=== PATIENT | male | born 1980 | race Caucasian/White ===

== ENCOUNTER 2020-07-08 08:00 | Outpatient (CLI) | payer SELFPAY ==
[2020-07-08 14:54] LABS: ALBUMIN 2.7 g/dL (3.2-5.5); ALBUMIN/GLOBULIN RATIO 0.7 (1.0-2.2); CALCIUM 8.3 mg/dL (8.5-10.3); CREATININE 0.9 mg/dL (0.6-1.2); TOTAL PROTEIN 6.7 g/dL (6.7-8.2)
[2020-07-08 15:02] LABS: BASOPHILS % (AUTO) 0.8 %; EOSINOPHILS # (AUTO) 0.1 10^3/uL (0.0-0.7); HGB - HEMOGLOBIN 12.4 g/dL (14.0-18.0); LYMPHOCYTES # (AUTO) 1.3 10^3/uL (1.5-3.5); LYMPHOCYTES % (AUTO) 35.8 %; MEAN CORPUSCULAR HEMOGLOBIN 33.7 pg (27.0-31.0); MEAN CORPUSCULAR HGB CONC 32.7 g/dL (32.0-36.0); MEAN PLATELET VOLUME 10.2 fL (7.4-11.4); MONOCYTES # (AUTO) 0.4 10^3/uL (0.0-1.0); MONOCYTES % (AUTO) 10.8 %; NEUTROPHILS # (AUTO) 1.8 10^3/uL (1.5-6.6); NEUTROPHILS % (AUTO) 49.3 %; PLT - PLATELET COUNT 93 10^3/uL (130-450); RED BLOOD COUNT 3.68 10^6/uL (4.70-6.10); RED CELL DISTRIBUTION WIDTH 17.4 % (12.0-15.0); WHITE BLOOD COUNT 3.7 x10^3/uL (4.8-10.8)
== END 2020-07-08 23:59 ==
LOC: LAB.S 08:00
PROVIDERS: ATTEND Physician Assistant Medical
DX: R10.31 Right lower quadrant pain (principal)
CPT/HCPCS: 36415; 80053; 85025; 87086

== ENCOUNTER 2020-07-08 18:34 | Emergency (ER) | payer SELFPAY ==
[2020-07-08 19:26] LABS: EOSINOPHILS # (AUTO) 0.1 10^3/uL (0.0-0.7); EOSINOPHILS % (AUTO) 2.5 %; HGB - HEMOGLOBIN 12.2 g/dL (14.0-18.0); LYMPHOCYTES # (AUTO) 1.2 10^3/uL (1.5-3.5); LYMPHOCYTES % (AUTO) 29.2 %; MEAN CORPUSCULAR HEMOGLOBIN 34.7 pg (27.0-31.0); MEAN CORPUSCULAR HGB CONC 34.1 g/dL (32.0-36.0); MEAN CORPUSCULAR VOLUME 101.7 fL (80.0-94.0); MEAN PLATELET VOLUME 9.4 fL (7.4-11.4); MONOCYTES # (AUTO) 0.5 10^3/uL (0.0-1.0); MONOCYTES % (AUTO) 11.3 %; NEUTROPHILS # (AUTO) 2.3 10^3/uL (1.5-6.6); NEUTROPHILS % (AUTO) 55.8 %; PLT - PLATELET COUNT 88 10^3/uL (130-450); RED BLOOD COUNT 3.52 10^6/uL (4.70-6.10); RED CELL DISTRIBUTION WIDTH 17.2 % (12.0-15.0); WHITE BLOOD COUNT 4.1 x10^3/uL (4.8-10.8)
--- NOTE | 2020-07-08 19:27 | ED Physician Documentation ---
History of Present Illness - Stated complaint Stated Complaint: LOWER ABD PX - Chief complaint Chief Complaint: General - History obtained from History obtained from: Patient - History of Present Illness Pain level max: 10 Pain level now: 0 Improved by: nothing Worsened by: Eating or drinking - Additonal information Additional information: Patient is a 40-year-old male who presents to the emergency department the right lower quadrant abdominal pain. He states is been ongoing for the past several months. Worse with eating and drinking. Better with rest. Has had chronic diarrhea as well. He was seen at the walk-in clinic earlier today and diagnosed with a possible UTI and kidney stones. He states that his prescriptions never arrived at [facility] and so came here for evaluation. No history of inflammatory bowel disease in the patient's family that he is aware of. No history of IBS. Patient has never had a colonoscopy and never seen in. There is a history of alcoholism in the family. He states that he has had heavy alcohol use in the past, but no longer drinks or smokes. Review of Systems Ten Systems: 10 systems reviewed and negative Constitutional: denies: Fever, Chills Throat: denies: Sore throat Cardiac: denies: Chest pain / pressure Respiratory: denies: Cough GI: reports: Diarrhea, Bloody / black stool (Patient states that he had bright red blood per rectum recently, states he was diagnosed with a hemorrhoid versus anal fissure.). denies: Vomiting, Hematemesis Skin: denies: Rash Musculoskeletal: denies: Neck pain, Back pain Neurologic: denies: Headache PD PAST MEDICAL HISTORY - Past Medical History Past Medical History: No - Past Surgical History Past Surgical History: No - Present Medications Home Medications: Ambulatory Orders Medication Instructions Recorded Confirmed Citalopram [CeleXA] 20 mg PO DAILY 07/08/20 07/08/20 Oxycodone HCl [Roxicodone] 5 mg PO BID PRN #14 tablet 07/08/20 - Allergies Allergies/Adverse Reactions: Allergies Allergy/AdvReac Type Severity Reaction Status Date / Time No Known Drug Allergies Allergy Verified 07/08/20 18:54 - Living Situation Living Situation: reports: With family Living Arrangement: reports: At home - Social History Does the pt smoke?: No Smoking Status: Former smoker Does the pt drink ETOH?: No Does the pt have substance abuse?: No - Family History Family history: reports: Non contributory PD ED PE NORMAL - Vitals Vital signs reviewed: Yes - General General: Alert and oriented X 3, No acute distress, Well developed/nourished - HEENT HEENT: PERRL, Moist mucous membranes - Neck Neck: Supple, no meningeal sign - Cardiac Cardiac: RRR, Strong equal pulses - Respiratory Respiratory: No respiratory distress, Clear bilaterally - Abdomen Abdomen: Soft, Other (Mildly distended. Nontender) - Back Back: No CVA TTP, No spinal TTP - Derm Derm: Warm and dry - Extremities Extremities: No edema - Neuro Neuro: Alert and oriented X 3 - Psych Psych: Normal mood, Normal affect Results - Vitals Vitals: Vital Signs - 24 hr 07/08/20 07/08/20 18:45 22:16 Temperature 36.7 C 36.7 C Heart Rate 105 H 90 Respiratory 18 16 Rate Blood Pressure 128/85 H 120/80 O2 Saturation 98 100 Oxygen O2 Source Room air - Labs Labs: Laboratory Tests 07/08/20 07/08/20 07/08/20 19:20 19:20 19:20 WBC 4.1 L RBC 3.52 L Hgb 12.2 L Hct 35.8 L MCV 101.7 H MCH 34.7 H MCHC 34.1 RDW 17.2 H Plt Count 88 L MPV 9.4 Neut # (Auto) 2.3 Lymph # (Auto) 1.2 L [place] # (Auto) 0.5 Eos # (Auto) 0.1 Baso # (Auto) 0.0 Absolute Nucleated RBC 0.00 Nucleated RBC % 0.0 PT 15.8 H INR 1.5 H APTT 36.0 H Sodium 135 Potassium 3.5 Chloride 99 L Carbon Dioxide 28 Anion Gap 8.0 BUN 13 Creatinine 0.9 Estimated GFR (MDRD) 94 Glucose 132 H Calcium 8.3 L Total Bilirubin 3.8 H AST 82 H ALT 40 Alkaline Phosphatase 135 H Total Protein 7.2 Albumin 2.9 L Globulin 4.3 H Albumin/Globulin Ratio 0.7 L Lipase 67 H Urine Color Urine Clarity Urine pH Ur Specific [place] Urine Protein Urine Glucose (UA) Urine Ketones Urine Occult Blood Urine Nitrite Urine Bilirubin Urine Urobilinogen Ur Leukocyte Esterase Urine RBC Urine WBC Ur Squamous Epith Cells Urine Bacteria Urine Mucus Ur Microscopic Review Urine Culture Comments 07/08/20 19:27 WBC RBC Hgb Hct MCV MCH MCHC RDW Plt Count MPV Neut # (Auto) Lymph # (Auto) [place] # (Auto) Eos # (Auto) Baso # (Auto) Absolute Nucleated RBC Nucleated RBC % PT INR APTT Sodium Potassium Chloride Carbon Dioxide Anion Gap BUN Creatinine Estimated GFR (MDRD) Glucose Calcium Total Bilirubin AST ALT Alkaline Phosphatase Total Protein Albumin Globulin Albumin/Globulin Ratio Lipase Urine Color DARK YELLOW Urine Clarity CLOUDY Urine pH 7.0 Ur Specific [place] 1.020 Urine Protein TRACE Urine Glucose (UA) NEGATIVE Urine Ketones NEGATIVE Urine Occult Blood LARGE H Urine Nitrite NEGATIVE Urine Bilirubin NEGATIVE Urine Urobilinogen 2 H Ur Leukocyte Esterase TRACE H Urine RBC TNTC H Urine WBC 0-3 Ur Squamous Epith Cells NONE SEEN Urine Bacteria Rare Urine Mucus Few Strands Ur Microscopic Review INDICATED Urine Culture Comments INDICATED - Rads (name of study) CT abdomen and pelvis Radiology: Prelim report reviewed, EMP read contemporaneously, See rad report PD MEDICAL DECISION MAKING - ED course Complexity details: reviewed results, re-evaluated patient, considered differential, d/w patient, d/w analytics consultant ED course: 40-year-old male with what appears to be likely alcoholic cirrhosis of the liver with ascites. 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 These are likely chronic. Does have some edematous thickening of the small bowel. Like that this is causing his abdominal pain when he eats. Recommend small frequent meals. I discussed the case with GI, Dr. Smith [facility], they will see the patient in clinic for colonoscopy and endoscopy. He recommends speaking to hematology regarding anticoagulation. Discussed the case with Dr. Gale hematology who feels that it would likely be very dangerous to anticoagulate the patient at this point, not knowing if he has a varices or not. He stated that as this appears likely chronic, the anticoagulation may not change his symptoms much anyway, therefore he would wait until colonoscopy and endoscopy can be completed. He will follow the patient up in clinic as well. The patient was referred to a new PCP today at the walk-in clinic. Hopefully this appointment can be moved up before 02 August. Patient was counseled at length regarding these diagnoses and decision of anticoagula tion or not. Patient is comfortable not having anticoagulation at this time. Patient counseled regarding signs and symptoms for which I believe and urgent re-evaluation would be necessary. Patient with good understanding of and agreement to plan and is comfortable going home at this time This document was made in part using voice recognition software. While efforts are made to proofread this document, sound alike and grammatical errors may occur. Findings of superior mesenteric vein and perhaps portal vein occlusion, likely chronic as there is a tortuous and dilated segment of the superior mesenteric vein inferiorly with suspected collateralization. Edematous thickening of the small bowel is presumably related, as is moderate volume ascites. Departure - Departure Disposition: 01 Home, Self Care Clinical Impression: Alcoholic cirrhosis of liver with ascites, Portal vein thrombosis, Superior mesenteric vein thrombosis Condition: Good Instructions: ED Cirrhosis Liver Follow-Up: MARLENA VENTURA PA-C [Primary Care Provider] - Gutierrez Dougherty MD [Provider Admit Priv/Credential] - Carlotta Sandhu MD [Provider Admit Priv/Credential] - Prescriptions: Oxycodone HCl [Roxicodone] 5 mg PO BID PRN #14 tablet PRN Reason: Abdominal Pain Comments: Return if you worsen. you need to follow up with hepatology (liver doctors), hematology (blood doctors) and your primary care doctor. No alcohol. Avoid tylenol, motrin, aspirin, naproxen and other over the counter pain medications. You have a blood clot in your portal vein and superior mesenteric vein. You need to eat small frequent meals to help avoid abdominal pain. If you develop vomiting with blood, you need to be seen right away. You also need to be seen right away for any dark or tarry stools or a large amount of bright red blood from your rectum. We did discuss anticoagulation tonight, but hematology feels that it is likely best to wait until you can have your endoscopy and colonoscopy to exclude varices. Anticoagulation could cause life-threatening bleeding in you. Do not drink alcohol or drive while on narcotic pain medicine. Note that many narcotic pain relievers also contain tylenol/acetaminophen. Please ensure that your total dose of acetaminophen from all sources does not exceed 3 grams (3000mg) per day. You may constipated on this medication, take a stool softener such as "Colace" twice a day while you are on it. Also recommend a [id number] laxative such as senna or MiraLAX any day that you do not have a bowel movement. If you received narcotic pain medication in the emergency department, do not drive or operate machinery for the next 24 hours. PROCEDURE: Abdomen/Pelvis W INDICATIONS: RLQ abd pain CONTRAST: IV CONTRAST: Optiray 320 ml: 100 PO CONTRAST: *NO PO CONTRAST TECHNIQUE: After the administration of intravenous contrast, 5 mm thick sections acquired from the diaphragms to the symphysis. 5 mm thick coronal and sagittal reformats were acquired. For radiation dose reduction, the following was used: automated exposure control, adjustment of mA and/or kV according to patient size. COMPARISON: None. FINDINGS: Image quality: Excellent. ABDOMEN: Lung bases: Lung bases are clear. Heart size is normal. Solid organs: No focal liver mass. Spleen is unremarkable. Both kidneys enhance normally and symmetrically. No adrenal gland mass. Pancreas within normal limits. Gallbladder not well evaluated. Peritoneum and bowel: Fairly diffuse dilatation and wall thickening of the small bowel with areas of mucosal hyperenhancement, nonspecific. There is moderate volume ascites throughout the abdomen and pelvis. No free air. The appendix is normal in caliber without evidence of appendicitis. Nodes and vessels: Nonopacification of the intrahepatic portal veins. Tortuous and dilated superior mesenteric vein with an abrupt cut off (series 3 images 51-60). Splenic vein is patent. The IVC and aorta are within normal limits. Miscellaneous: No ventral hernias. PELVIS: Genitourinary: Bladder wall thickness is normal. Miscellaneous: No inguinal hernias or adenopathy. Bones: No suspicious bony lesions. No vertebral body compression fractures. IMPRESSION: Findings of superior mesenteric vein and perhaps portal vein occlusion, likely chronic as there is a tortuous and dilated segment of the superior mesenteric vein inferiorly with suspected collateralization. Edematous thickening of the small bowel is presumably related, as is moderate volume ascites. Your platelets are 88 tonight. Your INR is 1.5. Discharge Date/Time: 07/08/20 22:16
[2020-07-08 19:37] LABS: BILIRUBIN,URINE NEGATIVE (NEGATIVE); GLUCOSE, URINE (UA) NEGATIVE (NEGATIVE); KETONES,URINE (UA) NEGATIVE (NEGATIVE); LEUKOCYTE ESTERASE, URINE TRACE (NEGATIVE); NITRITE,URINE NEGATIVE (NEGATIVE); OCCULT BLOOD,URINE LARGE (NEGATIVE); PROTEIN,URINE TRACE mg/dL (NEGATIVE); UROBILINOGEN,URINE 2 E.U./dL (NORMAL)
[2020-07-08 19:40] LABS: ALBUMIN 2.9 g/dL (3.2-5.5); ALBUMIN/GLOBULIN RATIO 0.7 (1.0-2.2); BILIRUBIN,TOTAL 3.8 mg/dL (0.2-1.0); CALCIUM 8.3 mg/dL (8.5-10.3); CREATININE 0.9 mg/dL (0.6-1.2); TOTAL PROTEIN 7.2 g/dL (6.7-8.2)
[2020-07-08 19:40] LABS: CLARITY,URINE CLOUDY (CLEAR)
[2020-07-08] MEDS ORDERED: IOVERSOL 320 100 ML VIAL IVP ONE ×2 (19:55→20:05)
[2020-07-08 19:58] LABS: BACTERIA,URINE Rare /HPF (None Seen); MUCUS,URINE Few Strands; RBC,URINE TNTC /HPF (0-5); SQUAMOUS EPITHELIAL CELL,UR NONE SEEN (<= Few)
[2020-07-08] MEDS ORDERED: DICYCLOMINE 10 MG CAPSULE PO STA (20:06)
[2020-07-08 20:28] LABS: INR 1.5 (0.8-1.2); PT - PROTHROMBIN TIME 15.8 secs (9.9-12.6)
--- NOTE | 2020-07-08 20:41 | CT Report ---
PROCEDURE: Abdomen/Pelvis W INDICATIONS: RLQ abd pain CONTRAST: IV CONTRAST: Optiray 320 ml: 100 PO CONTRAST: *NO PO CONTRAST TECHNIQUE: After the administration of intravenous contrast, 5 mm thick sections acquired from the diaphragms to the symphysis. 5 mm thick coronal and sagittal reformats were acquired. For radiation dose reducti on, the following was used: automated exposure control, adjustment of mA and/or kV according to mariaelena ent size. COMPARISON: None. FINDINGS: Image quality: Excellent. ABDOMEN: Lung bases: Lung bases are clear. Heart size is normal. Solid organs: No focal liver mass. Spleen is unremarkable. Both kidneys enhance normally and symmetri alba. No adrenal gland mass. Pancreas within normal limits. Gallbladder not well evaluated. Peritoneum and bowel: Fairly diffuse dilatation and wall thickening of the small bowel with areas of mucosal hyperenhancement, nonspecific. There is moderate volume ascites throughout the abdomen and pe lvis. No free air. The appendix is normal in caliber without evidence of appendicitis. Nodes and vessels: Nonopacification of the intrahepatic portal veins. Tortuous and dilated superior mesenteric vein with an abrupt cut off (series 3 images 51-60). Splenic vein is patent. The IVC and a hari are within normal limits. Miscellaneous: No ventral hernias. PELVIS: Genitourinary: Bladder wall thickness is normal. Miscellaneous: No inguinal hernias or adenopathy. Bones: No suspicious bony lesions. No vertebral body compression fractures. IMPRESSION: Findings of superior mesenteric vein and perhaps portal vein occlusion, likely chronic as there is a tortuous and dilated segment of the superior mesenteric vein inferiorly with suspected collateralizat ion. Edematous thickening of the small bowel is presumably related, as is moderate volume ascites. Reviewed by: Efrem Flores MD on 07/08/2020 8:40 PM PST Approved by: Efrem Flores MD on 07/08/2020 8:40 PM PST Station ID: [id number]
[2020-07-08 22:18] VITALS: BP 120/80
== END 2020-07-08 22:16 | disposition home or self-care (01) ==
LOC: ED 18:34
DX: K55.059 Acute (reversible) ischemia of intestine, part and extent unspecified (principal); K70.31 Alcoholic cirrhosis of liver with ascites; I81 Portal vein thrombosis; Z87.891 Personal history of nicotine dependence
CPT/HCPCS: 74177; 80053; 81001; 83690; 85025; 85610; 85730; 87086; 99284; A9270; Q9967; 36415; 81003

== ENCOUNTER 2020-07-11 09:23 | Outpatient (CLI) | payer SELFPAY ==
[2020-07-12 06:43] LABS: CA 19-9 39 U/mL (<34)
[2020-07-13 12:06] LABS: ANA SCREEN NEGATIVE (NEGATIVE)
[2020-07-13 13:44] LABS: HEPATITIS B SURFACE ANTIGEN NON-REACTIVE (NON-REACTIVE); HEPATITIS C ANTIBODY NON-REACTIVE (NON-REACTIVE)
[2020-07-14 19:22] LABS: SMOOTH MUSCLE IGG AB <20 U
== END 2020-07-11 09:24 | disposition home or self-care (01) ==
LOC: LAB 09:23
PROVIDERS: ATTEND Internal Medicine Gastroenterology
DX: R19.7 Diarrhea, unspecified (principal); K62.5 Hemorrhage of anus and rectum; K70.31 Alcoholic cirrhosis of liver with ascites; K70.30 Alcoholic cirrhosis of liver without ascites
CPT/HCPCS: 36415; 81599; 82103; 82105; 82378; 82390; 82728; 83516; 86038; 86301; 86803; 87340

== ENCOUNTER 2020-08-13 12:13 | Outpatient (CLI) | payer OTHER ==
[2020-08-13 12:39] LABS: EOSINOPHILS # (AUTO) 0.1 10^3/uL (0.0-0.7); EOSINOPHILS % (AUTO) 3.4 %; HGB - HEMOGLOBIN 11.9 g/dL (14.0-18.0); MEAN CORPUSCULAR HEMOGLOBIN 33.8 pg (27.0-31.0); MEAN CORPUSCULAR HGB CONC 33.1 g/dL (32.0-36.0); MEAN PLATELET VOLUME 10.3 fL (7.4-11.4); MONOCYTES # (AUTO) 0.6 10^3/uL (0.0-1.0); MONOCYTES % (AUTO) 13.5 %; NEUTROPHILS # (AUTO) 2.3 10^3/uL (1.5-6.6); NEUTROPHILS % (AUTO) 56.9 %; PLT - PLATELET COUNT 65 10^3/uL (130-450); RED BLOOD COUNT 3.52 10^6/uL (4.70-6.10); RED CELL DISTRIBUTION WIDTH 17.1 % (12.0-15.0); WHITE BLOOD COUNT 4.1 x10^3/uL (4.8-10.8)
[2020-08-13 12:51] LABS: INR 1.3 (0.8-1.2); PT - PROTHROMBIN TIME 14.6 secs (9.9-12.6)
[2020-08-13 13:19] LABS: ALBUMIN/GLOBULIN RATIO 0.8 (1.0-2.2); BILIRUBIN,TOTAL 1.9 mg/dL (0.2-1.0); CALCIUM 8.9 mg/dL (8.5-10.3); CREATININE 0.7 mg/dL (0.6-1.2); TOTAL PROTEIN 6.9 g/dL (6.7-8.2)
== END 2020-08-13 12:14 | disposition home or self-care (01) ==
LOC: LAB 12:13
PROVIDERS: ATTEND Internal Medicine Gastroenterology
DX: K62.5 Hemorrhage of anus and rectum (principal); K70.30 Alcoholic cirrhosis of liver without ascites; R05 Cough; R11.2 Nausea with vomiting, unspecified; Z20.822 Contact with and (suspected) exposure to COVID-19
CPT/HCPCS: 36415; 80053; 85025; 85610

== ENCOUNTER 2020-09-23 13:06 | Outpatient (CLI) | payer OTHER ==
[2020-09-23 13:29] LABS: BASOPHILS # (AUTO) 0.1 10^3/uL (0.0-0.1); BASOPHILS % (AUTO) 1.1 %; EOSINOPHILS # (AUTO) 0.1 10^3/uL (0.0-0.7); EOSINOPHILS % (AUTO) 2.8 %; HCT - HEMATOCRIT 34.4 % (42.0-52.0); HGB - HEMOGLOBIN 11.5 g/dL (14.0-18.0); LYMPHOCYTES # (AUTO) 1.2 10^3/uL (1.5-3.5); LYMPHOCYTES % (AUTO) 26.3 %; MEAN CORPUSCULAR HEMOGLOBIN 33.9 pg (27.0-31.0); MEAN CORPUSCULAR HGB CONC 33.4 g/dL (32.0-36.0); MEAN CORPUSCULAR VOLUME 101.5 fL (80.0-94.0); MEAN PLATELET VOLUME 9.7 fL (7.4-11.4); MONOCYTES # (AUTO) 0.5 10^3/uL (0.0-1.0); MONOCYTES % (AUTO) 9.6 %; NEUTROPHILS # (AUTO) 2.8 10^3/uL (1.5-6.6); NEUTROPHILS % (AUTO) 59.8 %; PLT - PLATELET COUNT 74 10^3/uL (130-450); RED BLOOD COUNT 3.39 10^6/uL (4.70-6.10); RED CELL DISTRIBUTION WIDTH 15.6 % (12.0-15.0); WHITE BLOOD COUNT 4.7 x10^3/uL (4.8-10.8)
[2020-09-23 13:41] LABS: ALBUMIN 2.7 g/dL (3.2-5.5); ALBUMIN/GLOBULIN RATIO 0.7 (1.0-2.2); BILIRUBIN,TOTAL 2.2 mg/dL (0.2-1.0); CALCIUM 8.4 mg/dL (8.5-10.3); CREATININE 0.9 mg/dL (0.6-1.2); POTASSIUM 3.8 mmol/L (3.5-5.0); TOTAL PROTEIN 6.7 g/dL (6.7-8.2)
[2020-09-23 13:50] LABS: INR 1.4 (0.8-1.2); PT - PROTHROMBIN TIME 15.3 secs (9.9-12.6)
== END 2020-09-23 13:07 | disposition home or self-care (01) ==
LOC: LAB 13:06
DX: D64.9 Anemia, unspecified (principal); K70.30 Alcoholic cirrhosis of liver without ascites
CPT/HCPCS: 36415; 80053; 85025; 85610

== ENCOUNTER 2020-09-27 19:02 | Emergency (ER) | payer OTHER ==
[2020-09-27] MEDS ORDERED: oxyCODONE 5 MG TABLET PO STA ×2 (19:24→21:35)
[2020-09-27] MEDS ORDERED: MAG HYDROX/AL HYDROX/SIMETH 30 ML UDC PO STA (19:24)
--- NOTE | 2020-09-27 19:27 | ED Physician Documentation ---
History of Present Illness - Stated complaint Stated Complaint: POST OP ABD PX - Chief complaint Chief Complaint: Abd Pain - History obtained from History obtained from: Patient - History of Present Illness Timing: Today Pain level max: 5 Pain level now: 5 - Additonal information Additional information: Patient is a 40-year-old male who had esophageal varices banded today at [facility] in [place]. He states that since he awoke up from sedation he has had chest pain. Rates as a 5-7 out of 10. He states it feels like an obese person is sitting on his chest. Nonradiating. He states that the GI Physician denied him pain medications after the procedure. He also states that he spoke with his primary care doctor today who also refused to write him for pain medications. Patient states nothing seems to make it better or worse. Is not related to exertion. Review of Systems Ten Systems: 10 systems reviewed and negative Constitutional: denies: Fever, Chills Ears: denies: Ear pain Nose: denies: Rhinorrhea / runny nose, Congestion Respiratory: denies: Cough GI: denies: Vomiting, Diarrhea Skin: denies: Rash Musculoskeletal: denies: Neck pain, Back pain Neurologic: denies: Headache PD PAST MEDICAL HISTORY - Past Medical History Past Medical History: Yes GI: Esophageal varices, Cirrhosis - Past Surgical History Past Surgical History: No - Present Medications Home Medications: Ambulatory Orders Medication Instructions Recorded Confirmed Citalopram [CeleXA] 20 mg PO DAILY 07/08/20 07/08/20 Oxycodone HCl [Roxicodone] 5 mg PO Q8H PRN #7 tablet 09/27/20 - Allergies Allergies/Adverse Reactions: Allergies Allergy/AdvReac Type Severity Reaction Status Date / Time No Known Drug Allergies Allergy Verified 09/27/20 19:08 - Social History Does the pt smoke?: No Smoking Status: Never smoker Does the pt drink ETOH?: No Does the pt have substance abuse?: No - Immunizations Immunizations are current?: Yes - POLST Patient has POLST: No PD ED PE NORMAL - Vitals Vital signs reviewed: Yes - General General: Alert and oriented X 3, No acute distress, Well developed/nourished - HEENT HEENT: PERRL, Moist mucous membranes - Neck Neck: Supple, no meningeal sign - Cardiac Cardiac: RRR, Strong equal pulses - Respiratory Respiratory: No respiratory distress, Clear bilaterally - Abdomen Abdomen: Soft, Non tender, Non distended - Derm Derm: Warm and dry - Extremities Extremities: No edema, No calf tenderness / cord - Neuro Neuro: Alert and oriented X 3 - Psych Psych: Normal mood, Normal affect Results - Vitals Vitals: Vital Signs - 24 hr 09/27/20 09/27/20 09/27/20 19:08 19:13 21:02 Temperature 36.8 C 36.8 C Heart Rate 107 H 107 H 116 H Respiratory 18 19 21 Rate Blood Pressure 134/68 H 134/68 H 123/70 O2 Saturation 98 98 98 09/27/20 09/27/20 21:54 21:58 Temperature 37.1 C 37.1 C Heart Rate 118 H 118 H Respiratory 16 16 Rate Blood Pressure 119/66 119/66 O2 Saturation 98 98 Oxygen O2 Source Room air - EKG (time done) 1928 Rate: Rate (enter#) (109) Rhythm: Sinus tachycardia [place]: Normal Intervals: Normal NE, Prolonged QT QRS: Normal Ischemia: Normal ST segments - Labs Labs: Laboratory Tests 09/27/20 09/27/20 09/27/20 19:30 19:30 19:30 WBC 4.8 RBC 3.21 L Hgb 10.7 L Hct 32.7 L MCV 101.9 H MCH 33.3 H MCHC 32.7 RDW 16.0 H Plt Count 65 L MPV 9.7 Neut # (Auto) 2.8 Lymph # (Auto) 1.3 L [place] # (Auto) 0.5 Eos # (Auto) 0.1 Baso # (Auto) 0.0 Absolute Nucleated RBC 0.00 Nucleated RBC % 0.0 Sodium 132 L Potassium 3.6 Chloride 98 L Carbon Dioxide 24 Anion Gap 10.0 BUN 15 Creatinine 0.9 Estimated GFR (MDRD) 94 Glucose 116 H Calcium 8.3 L Total Bilirubin 3.6 H AST 56 H ALT 35 Alkaline Phosphatase 99 Troponin I High Sens 6.3 Total Protein 6.6 L Albumin 2.8 L Globulin 3.8 Albumin/Globulin Ratio 0.7 L Lipase 29 - Rads (name of study) cxr Radiology: Prelim report reviewed, EMP read contemporaneously, See rad report (No acute cardiopulmonary pathology. ) CT PA Radiology: Prelim report reviewed, EMP read contemporaneously, See rad report PD MEDICAL DECISION MAKING - ED course Complexity details: reviewed results, re-evaluated patient, considered differential, d/w patient ED course: 40-year-old male with chest pain after esophageal variceal banding today. Pain well controlled here. No evidence of acute coronary syndrome. No PE. No esophageal rupture. No vomiting. No hematemesis. Unclear etiology of his symptoms. We will trial him on pain medication and have him follow-up with his doctor for further care. Patient counseled regarding signs and symptoms for which I believe and urgent re-evaluation would be necessary. Patient with good understanding of and agreement to plan and is comfortable going home at this time This document was made in part using voice recognition software. While efforts are made to proofread this document, sound alike and grammatical errors may occur. 1. No evidence of pulmonary bullae. No thoracic aortic aneurysm or gross dissection. 2. No mediastinal or hilar lymphadenopathy. 3. Scattered atelectasis in peripheral bilateral lung whitaker. No pleural effusion or pneumothorax. Airway is patent. 4. Splenomegaly. Departure - Departure Disposition: 01 Home, Self Care Clinical Impression: Chest pain Qualifiers: Chest pain type: unspecified Qualified Code(s): R07.9 - Chest pain, unspecified Condition: Good Instructions: ED Chest Pain Atypical Unkn Cause Follow-Up: MARLENA VENTURA PA-C [Primary Care Provider] - Within 1 week Prescriptions: Oxycodone HCl [Roxicodone] 5 mg PO Q8H PRN #7 tablet PRN Reason: pain Comments: Follow-up with your doctor for further care. Return if you worsen. Your tests are all normal tonight. Do not drink alcohol or drive while on narcotic pain medicine. Note that many narcotic pain relievers also contain tylenol/acetaminophen. Please ensure that your total dose of acetaminophen from all sources does not exceed 3 grams (3000mg) per day. You may constipated on this medication, take a stool softener such as "Colace" twice a day while you are on it. Also recommend a [id number]-dwg-[id number] laxative such as senna or MiraLAX any day that you do not have a bowel movement. If you received narcotic pain medication in the emergency department, do not drive or operate machinery for the next 24 hours. Discharge Date/Time: 09/27/20 21:58
[2020-09-27 19:38] LABS: BASOPHILS % (AUTO) 0.6 %; EOSINOPHILS # (AUTO) 0.1 10^3/uL (0.0-0.7); EOSINOPHILS % (AUTO) 2.3 %; HCT - HEMATOCRIT 32.7 % (42.0-52.0); HGB - HEMOGLOBIN 10.7 g/dL (14.0-18.0); LYMPHOCYTES # (AUTO) 1.3 10^3/uL (1.5-3.5); LYMPHOCYTES % (AUTO) 27.5 %; MEAN CORPUSCULAR HEMOGLOBIN 33.3 pg (27.0-31.0); MEAN CORPUSCULAR HGB CONC 32.7 g/dL (32.0-36.0); MEAN CORPUSCULAR VOLUME 101.9 fL (80.0-94.0); MEAN PLATELET VOLUME 9.7 fL (7.4-11.4); MONOCYTES # (AUTO) 0.5 10^3/uL (0.0-1.0); MONOCYTES % (AUTO) 11.1 %; NEUTROPHILS # (AUTO) 2.8 10^3/uL (1.5-6.6); NEUTROPHILS % (AUTO) 58.3 %; PLT - PLATELET COUNT 65 10^3/uL (130-450); RED BLOOD COUNT 3.21 10^6/uL (4.70-6.10); WHITE BLOOD COUNT 4.8 x10^3/uL (4.8-10.8)
[2020-09-27 19:53] LABS: ALBUMIN 2.8 g/dL (3.2-5.5); ALBUMIN/GLOBULIN RATIO 0.7 (1.0-2.2); BILIRUBIN,TOTAL 3.6 mg/dL (0.2-1.0); CALCIUM 8.3 mg/dL (8.5-10.3); CREATININE 0.9 mg/dL (0.6-1.2); POTASSIUM 3.6 mmol/L (3.5-5.0); TOTAL PROTEIN 6.6 g/dL (6.7-8.2)
--- NOTE | 2020-09-27 20:05 | XRAY Report ---
PROCEDURE: Chest 1 View X-Ray INDICATIONS: Chest Pain TECHNIQUE: One view of the chest was acquired. COMPARISON: None FINDINGS: Surgical changes and devices: None. Lungs and pleura: No pleural effusions or pneumothorax. Lungs are clear. Mediastinum: Mediastinal contours appear normal. Heart size is normal. Bones and chest wall: No suspicious bony lesions. Overlying soft tissues appear unremarkable. IMPRESSION: No acute cardiopulmonary pathology. Reviewed by: Yadiel Redd MD on 09/27/2020 8:04 PM PDT Approved by: Yadiel Redd MD on 09/27/2020 8:04 PM PDT Station ID: [id number]
[2020-09-27] MEDS ORDERED: IOVERSOL 320 100 ML VIAL IVP ONE ×2 (20:45→21:14)
--- NOTE | 2020-09-27 21:28 | CT Report ---
PROCEDURE: ANGIO CHEST W/WO INDICATIONS: tachycardia, chest pain CONTRAST: IV CONTRAST: Optiray 320 ml: 100 PO CONTRAST: *NO PO CONTRAST TECHNIQUE: After the administration of intravenous contrast, 2 mm thick sections acquired from the pulmonary api ramon to the posterior costophrenic angles. 3-dimensional maximum intensity projection (MIP) coronal a nd sagittal reformats were then acquired through the thorax. For radiation dose reduction, the follow ing was used: automated exposure control, adjustment of mA and/or kV according to patient size. COMPARISON: Chest radiograph from the same day. CT of abdomen and pelvis dated 07/08/2020 FINDINGS: Image quality: Excellent. Pulmonary arteries: Pulmonary arteries are normal in size, and demonstrate no intraluminal filling d efects to suggest central pulmonary embolism. Lungs and pleura: There is no acute airspace opacities. Scattered atelectasis in periphery of bilater al lung whitaker are seen. No pleural effusions or pneumothorax. Central and peripheral airways are p atent. Mediastinum: Heart size is normal, without pericardial effusion. No mediastinal or hilar adenopathy . Thoracic aorta is normal in caliber and enhancement. Esophagus is normal in caliber, without hiat al hernia. Bones and chest wall: No suspicious bony lesions. Ribs and thoracic spine appear intact throughout. The thyroid is normal. No axillary or supraclavicular adenopathy. Abdomen: Splenomegaly is seen. Visualized portion of liver, pancreas and bilateral adrenal glands giana ws no gross abnormality. IMPRESSION: 1. No evidence of pulmonary bullae. No thoracic aortic aneurysm or gross dissection. 2. No mediastinal or hilar lymphadenopathy. 3. Scattered atelectasis in peripheral bilateral lung whitaker. No pleural effusion or pneumothorax. rway is patent. 4. Splenomegaly. Reviewed by: Yadiel Redd MD on 09/27/2020 9:27 PM PDT Approved by: Yadiel Redd MD on 09/27/2020 9:27 PM PDT Station ID: [id number]
[2020-09-27 21:55] VITALS: BP 119/66
== END 2020-09-27 21:58 | disposition home or self-care (01) ==
LOC: ED 19:02
DX: R07.9 Chest pain, unspecified (principal); G89.18 Other acute postprocedural pain; R00.0 Tachycardia, unspecified; R94.31 Abnormal electrocardiogram [ECG] [EKG]
CPT/HCPCS: 36415; 71045; 71275; 80053; 83690; 84484; 85025; 93005; 99284; A9270; Q9967

== ENCOUNTER 2020-10-03 22:35 | Outpatient (CLI) | payer OTHER | END 2020-10-03 23:59 | disposition critical access hospital (66) | LOC: EMS 22:35 | PROVIDERS: ATTEND Emergency Medicine | DX: K92.0 Hematemesis (principal); R53.1 Weakness; R42 Dizziness and giddiness | CPT/HCPCS: A0425; A0427 ==

== ENCOUNTER 2020-10-03 23:03 | Emergency (ER) | payer OTHER ==
[2020-10-03] MEDS ORDERED: OCTREOTIDE 500 MCG in SODIUM CHLORIDE 0.9% 100ML 95 ML IV STA (23:20)
[2020-10-03] MEDS ORDERED: OCTREOTIDE 100 MCG/ML VIAL IVP STA (23:22)
[2020-10-03] MEDS ORDERED: SODIUM CHLORIDE 0.9% 1,000 ML IV STA (23:23)
--- NOTE | 2020-10-03 23:23 | ED Physician Documentation ---
PD HPI GI BLEED - Stated complaint Stated Complaint: VOMITING BLOOD - History obtained from History obtained from: Patient, EMS - History of Present Illness Timing - onset: Enter time (1599), Today Timing - duration: Hours Timing - details: Abrupt onset, Still present Associated symptoms: Vomiting, Hematemesis Contributing factors: Other (cirrhosis and varacies) Improved by: Laying still Similar symptoms before: Has not had sx before Recently seen: Emergency Dept, Surgery - Additional information Additional information: 32-year-old male with a history of cirrhosis has esophageal varices and he has had these recently banded about 1 week ago. He has had these banded 3 times and today he is vomited a couple blood about 3 times since 1600 today. Review of Systems Constitutional: denies: Fever Eyes: denies: Decreased vision Ears: denies: Ear pain Nose: denies: Congestion PD PAST MEDICAL HISTORY - Past Medical History GI: Esophageal varices, Cirrhosis - Past Surgical History Past Surgical History: No - Present Medications Home Medications: Ambulatory Orders Medication Instructions Recorded Confirmed Citalopram [CeleXA] 20 mg PO DAILY 07/08/20 07/08/20 Oxycodone HCl [Roxicodone] 5 mg PO Q8H PRN #7 tablet 09/27/20 - Allergies Allergies/Adverse Reactions: Allergies Allergy/AdvReac Type Severity Reaction Status Date / Time No Known Drug Allergies Allergy Verified 10/03/20 23:20 - Social History Does the pt smoke?: No Smoking Status: Never smoker Does the pt drink ETOH?: No Does the pt have substance abuse?: No - Immunizations Immunizations are current?: Yes - POLST Patient has POLST: No PD ED PE NORMAL - Vitals Vital signs reviewed: Yes (tachycardic) - General General: Alert and oriented X 3, Well developed/nourished, Other (pale appearing male) - HEENT HEENT: Atraumatic, PERRL, EOMI - Neck Neck: Supple, no meningeal sign - Cardiac Cardiac: No murmur, Other (tachy to 100) - Respiratory Respiratory: No respiratory distress, Clear bilaterally - Abdomen Abdomen: Soft, Other (mild epigastric tenderness) - Back Back: No CVA TTP, No spinal TTP - Derm Derm: Normal color, Warm and dry, No rash - Extremities Extremities: No deformity, No edema - Neuro Neuro: Alert and oriented X 3, 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, No motor deficit, No sensory deficit, Normal speech Eye Opening: Spontaneous Motor: Obeys Commands Verbal: Oriented GCS Score: 15 - Psych Psych: Normal mood, Normal affect Results - Vitals Vitals: Vital Signs - 24 hr 10/03/20 10/03/20 10/03/20 23:12 23:19 23:49 Temperature 36.7 C 36.7 C 36.7 C Heart Rate 118 H 118 H 119 H Respiratory 20 19 16 Rate Blood Pressure 108/73 112/74 107/56 L O2 Saturation 99 98 97 Oxygen O2 Source Room air - EKG (time done) 2312 Rate: Rate (enter#) (117) Rhythm: Sinus tachycardia Intervals: Prolonged QT (borderline) Compare to prior EKG: Unchanged from prior EKG Computer interpretation: Agree with computer - Labs Labs: Laboratory Tests 10/03/20 10/03/20 10/03/20 23:24 23:24 23:24 WBC 9.8 RBC 2.95 L Hgb 10.0 L Hct 30.8 L MCV 104.4 H MCH 33.9 H MCHC 32.5 RDW 16.5 H Plt Count 107 L MPV 9.6 Neut # (Auto) 5.4 Lymph # (Auto) 2.9 [place] # (Auto) 1.1 H Eos # (Auto) 0.4 Baso # (Auto) 0.1 Absolute Nucleated RBC 0.00 Nucleated RBC % 0.0 PT 16.6 H INR 1.5 H APTT 34.7 H Sodium 136 Potassium 3.8 Chloride 103 Carbon Dioxide 24 Anion Gap 9.0 BUN 20 Creatinine 0.8 Estimated GFR (MDRD) 108 Glucose 89 Calcium 8.1 L Total Bilirubin 3.4 H AST 51 H ALT 36 Alkaline Phosphatase 75 Total Protein 5.6 L Albumin 2.4 L Globulin 3.2 Albumin/Globulin Ratio 0.8 L Lipase 27 Blood Type Antibody Screen 10/03/20 23:24 WBC RBC Hgb Hct MCV MCH MCHC RDW Plt Count MPV Neut # (Auto) Lymph # (Auto) [place] # (Auto) Eos # (Auto) Baso # (Auto) Absolute Nucleated RBC Nucleated RBC % PT INR APTT Sodium Potassium Chloride Carbon Dioxide Anion Gap BUN Creatinine Estimated GFR (MDRD) Glucose Calcium Total Bilirubin AST ALT Alkaline Phosphatase Total Protein Albumin Globulin Albumin/Globulin Ratio Lipase Blood Type A POSITIVE Antibody Screen NEGATIVE Procedures - IVC sono (time) 2320 Bedside IVC sono: IVC measures (cm) (unable 2nd gas) PD MEDICAL DECISION MAKING - ED course Complexity details: reviewed old records, reviewed results, re-evaluated patient, considered differential, d/w patient ED course: 40-year-old male with a history of alcoholic cirrhosis and esophageal varices has recently had his varices banded he has had them banded now a total of 3 times. He has not ever had issue with bleeding previously. Today he has developed bleeding and he has a blood count that is less but similar to what he has had previously on initial evaluation. He does vomit more in the emergency department. On arrival octreotide is started with a 50 mcg bolus and a drip at 50/h. Dr. Pearl Connelly at [facility] in [place] is consulted by telephone and will except the patient in transfer. Departure - Departure Disposition: 02 Transfer Acute Care Hosp Clinical Impression: Bleeding esophageal varices in alcoholic cirrhosis
[2020-10-03 23:31] LABS: BASOPHILS # (AUTO) 0.1 10^3/uL (0.0-0.1); BASOPHILS % (AUTO) 0.8 %; EOSINOPHILS # (AUTO) 0.4 10^3/uL (0.0-0.7); EOSINOPHILS % (AUTO) 3.7 %; HCT - HEMATOCRIT 30.8 % (42.0-52.0); LYMPHOCYTES # (AUTO) 2.9 10^3/uL (1.5-3.5); LYMPHOCYTES % (AUTO) 29.3 %; MEAN CORPUSCULAR HEMOGLOBIN 33.9 pg (27.0-31.0); MEAN CORPUSCULAR HGB CONC 32.5 g/dL (32.0-36.0); MEAN CORPUSCULAR VOLUME 104.4 fL (80.0-94.0); MEAN PLATELET VOLUME 9.6 fL (7.4-11.4); MONOCYTES # (AUTO) 1.1 10^3/uL (0.0-1.0); NEUTROPHILS # (AUTO) 5.4 10^3/uL (1.5-6.6); NEUTROPHILS % (AUTO) 54.7 %; PLT - PLATELET COUNT 107 10^3/uL (130-450); RED BLOOD COUNT 2.95 10^6/uL (4.70-6.10); RED CELL DISTRIBUTION WIDTH 16.5 % (12.0-15.0); WHITE BLOOD COUNT 9.8 x10^3/uL (4.8-10.8)
[2020-10-03] MEDS ORDERED: ONDANSETRON 4 MG/2 ML VIAL IVP STA (23:32)
[2020-10-03 23:36] LABS: INR 1.5 (0.8-1.2); PT - PROTHROMBIN TIME 16.6 secs (9.9-12.6)
[2020-10-03 23:43] LABS: PARTIAL THROMBOPLASTIN TIME 34.7 secs (24.9-33.3)
[2020-10-03 23:44] LABS: ALBUMIN 2.4 g/dL (3.2-5.5); ALBUMIN/GLOBULIN RATIO 0.8 (1.0-2.2); BILIRUBIN,TOTAL 3.4 mg/dL (0.2-1.0); CALCIUM 8.1 mg/dL (8.5-10.3); CREATININE 0.8 mg/dL (0.6-1.2); POTASSIUM 3.8 mmol/L (3.5-5.0); TOTAL PROTEIN 5.6 g/dL (6.7-8.2)
[2020-10-03] MEDS ORDERED: OCTREOTIDE 100 MCG/ML VIAL ONE (23:45)
[2020-10-04 00:14] VITALS: BP 101/49
[2020-10-04 00:22] LABS: B. PARAPERTUSSIS- RESP PCR PAN NOT DETECTED; B. PERTUSSIS- RESP PCR PANEL NOT DETECTED; C. PNEUMONIAE- RESP PCR PANEL NOT DETECTED; CORONAVIRUS 229E-RESP PCR NOT DETECTED; CORONAVIRUS HKU1-RESP PCR NOT DETECTED; CORONAVIRUS NL63-RESP PCR NOT DETECTED; CORONAVIRUS OC43-RESP PCR NOT DETECTED; HUMAN METAPNEUMOVIRUS NOT DETECTED; INFLUENZA A- RESP PCR PANEL NOT DETECTED; INFLUENZA B - RESP PCR PANEL NOT DETECTED; M. PNEUMONIAE- RESP PCR PANEL NOT DETECTED; PARAINFLUENZA VIRUS 1 NOT DETECTED; PARAINFLUENZA VIRUS 2 NOT DETECTED; PARAINFLUENZA VIRUS 3 NOT DETECTED; PARAINFLUENZA VIRUS 4 NOT DETECTED; RHINOVIRUS/ENTEROVIRUS NOT DETECTED; RSV- RESP PCR PANEL NOT DETECTED; SARS-CoV-2 -RESP PCR PANEL NOT DETECTED
== END 2020-10-04 00:42 | disposition short-term general hospital (02) ==
LOC: EDUNIT# → ED 23:03
DX: K70.30 Alcoholic cirrhosis of liver without ascites (principal); I85.11 Secondary esophageal varices with bleeding; R00.0 Tachycardia, unspecified; R94.31 Abnormal electrocardiogram [ECG] [EKG]; Z20.822 Contact with and (suspected) exposure to COVID-19
CPT/HCPCS: 0202U; 36415; 80053; 80320; 83690; 85025; 85610; 85730; 86850; 86900; 86901; 93005; 96365; 96375; 99284; 99285; J2354

== ENCOUNTER 2020-10-17 15:31 | Outpatient (CLI) | payer OTHER ==
[2020-10-17 15:48] LABS: BASOPHILS % (AUTO) 0.7 %; EOSINOPHILS # (AUTO) 0.3 10^3/uL (0.0-0.7); EOSINOPHILS % (AUTO) 5.2 %; HCT - HEMATOCRIT 29.9 % (42.0-52.0); HGB - HEMOGLOBIN 9.8 g/dL (14.0-18.0); LYMPHOCYTES # (AUTO) 1.2 10^3/uL (1.5-3.5); LYMPHOCYTES % (AUTO) 20.2 %; MEAN CORPUSCULAR HGB CONC 32.8 g/dL (32.0-36.0); MEAN CORPUSCULAR VOLUME 100.7 fL (80.0-94.0); MEAN PLATELET VOLUME 10.2 fL (7.4-11.4); MONOCYTES # (AUTO) 0.6 10^3/uL (0.0-1.0); MONOCYTES % (AUTO) 10.4 %; NEUTROPHILS # (AUTO) 3.8 10^3/uL (1.5-6.6); PLT - PLATELET COUNT 87 10^3/uL (130-450); RED BLOOD COUNT 2.97 10^6/uL (4.70-6.10); RED CELL DISTRIBUTION WIDTH 18.6 % (12.0-15.0)
[2020-10-17 15:57] LABS: ALBUMIN 2.8 g/dL (3.2-5.5); ALBUMIN/GLOBULIN RATIO 0.9 (1.0-2.2); BILIRUBIN,TOTAL 4.6 mg/dL (0.2-1.0); CALCIUM 8.1 mg/dL (8.5-10.3); CREATININE 0.9 mg/dL (0.6-1.2)
== END 2020-10-17 15:32 | disposition home or self-care (01) ==
LOC: LAB 15:31
PROVIDERS: ATTEND Physician Assistant
DX: I85.01 Esophageal varices with bleeding (principal)
CPT/HCPCS: 36415; 80053; 85025

== ENCOUNTER 2020-10-21 10:15 | Outpatient (CLI) | payer OTHER ==
[2020-10-21 12:44] VITALS: BP 120/70
--- NOTE | 2020-10-21 12:44 | SLEEP CARE CONSULTATION ---
Information from patient questionnaire entered by Vviian Be. I have reviewed and concur with the information entered by Vivian Be. This document represents the service I personally performed and the decisions made by me, Radha Yuan MD, [facility]. History of Present Illness Service Date and Time: 10/21/2020 1015 Reason for Visit: New patient Chief Complaint: reports: Insomnia, Unrefreshed sleep, Snoring, Excessive daytime sleepiness, Observed pauses in breathing, Fatigue, Frequent awakenings at night Date of Onset: 25 plus years Usual bedtime: 9pm-12am Time it takes to fall asleep: depends, hours if at all Snores at night: Yes Observed to quit breathing while asleep: Yes Sleeps alone due to snoring: No Number of times waking at night: every hour Reasons for waking at night: reports: Choking, Snoring, Pain, Bathroom, Other (restless legs, unknown reason) Toss, Turn, or Twitch while sleeping: Yes Recalls having dreams: No Usually gets out of bed at: 6am - 12pm Feels refreshed in the morning: No Morning headache: No Sleepy or fatigued during the day: Yes Ever fallen asleep while driving: No Takes day naps: Yes Dreams during day naps: Yes (sometimes) Prior sleep studies: No Additional HPI information: I had the pleasure of seeing Mr. Bui today regarding the possibility of him having a sleep disorder. As you know, he is a 40 year old gentleman who complains of poor sleep, insomnia, unrefreshed sleep, loud snore, and observed apneas. The patient tells me that he normally goes to bed around 9 pm - midnight, and it takes him approximately hours to fall asleep. He has been told that he snores loudly and irregularly at night. He has also been observed to stop breathing in his sleep. His can still sleep in the same bed. He can recall waking up on the average of every hour during the night. Most of the time he wakes up because of having to use the bathroom and pain. He has awakened occasionally because of his own snoring, choking, and having to gasp for air. There is a lot of tossing and turning in his sleep. No somniloquy (sleep talking) or somnambulism (sleep walking). Generally there is no recollection of dreams. In the morning he usually gets up out of the bed around 6 a.m. - noon not feeling refreshed nor rested. He usually does not have a morning headache. During the day he complains of feeling sleepy and fatigued. However, his score on Marvin Sleepiness Scale is 4 out of 24. He usually occasionally takes naps during the day. He reports having impaired concentration during the day. He is bothered by restless leg syndrome. - Parasomnia Symptoms Ever been unable to move upon waking from sleep: No Walks in sleep: Yes Talks in sleep: No Ever acted out dreams in sleep: Yes Ever felt weak in the knees when startled or emotional: No Bothered by creepy, crawly, restless sensations in legs: Yes Problems with memory or concentration: Yes Subjective Initial Marvin Sleepiness Scale score: 4 (in 2020) Past Medical History Past Medical History: reports: Anemia, Anxiety, Depression, Other (cirrhosis liver) Social History The patient's occupation is a Not Employed. Patient is and lives in [place]. Have you smoked in the past 12 months: No Cigarettes per day (20/pack): 20 Years of smokin Quit date: 12/2019 Smoking Pack Years: 19.0 Alcohol use: No Caffeine use: Yes Caffeine amount and frequency: 1 soda daily Family History Family history of sleep disordered breathing: Yes Family Hx Sleep Apnea: Father: Sleep apnea - Untreated Allergies and Home Medications Drug allergies reviewed: Yes Home medication list reviewed: Yes Review of Systems Cardiovascular: reports: irregular heart rate or pulse, leg or foot swelling, have to sleep sitting up Respiratory: reports: shortness of breath Gastrointestinal: reports: heartburn, difficulty swallowing, nausea, vomitting, diarrhea, abdominal pain Neurological: denies: headaches, seizure, head trauma, disorientation, speech dysfunction, gait or balance problems, fainting or unconsciousness, other Psychiatric: reports: anxiety, depression Ear/Nose/Throat: reports: nose bleeds, dry mouth/throat Endocrine: denies: thyroid disease, history of goiter, sluggishness, too hot or cold, excessive thirst, increased appetite, increased urination, unexplained weakness, other Musculoskeletal: denies: joint pain, neck pain, back pain, joint swelling, muscle pain or cramping, mobility problems, other Immunologic: denies: sneezing, rash, itching, allergies to food or environment, other Physical Exam Vital signs obtained and entered by: Dr. Yuan Blood Pressure: 120/70 Cuff size: regular Heart Rate: 110 O2 Saturation: 98 Height: 6 ft 2 in Weight: 185 lb Body Mass Index: 23.7 BMI Classification: Healthy weight Neck circumference: 15 Mood/affect: Normal HEENT: No craniofacial malformation Nostrils: partially obstructed Turbinates: normal Septum: midline Mouth and throat: narrow oropharynx Soft palate: long Hard palate: normal Uvula: normal Uvula visualization: 50% Mallampati Class II Tongue: normal in size Tonsils: small Chin and jaw: normal size and position Impression and Plan IMPRESSION: 1. Obstructive Sleep Apnea-Hypopnea Syndrome, as suggested by history of loud and irregular snoring, observed cessation of breath while asleep, frequent awakenings during the night, nocturnal choking, unrefreshed sleep, cognitive impairment, and daytime hypersomnolence. Narrow oropharynx is a common predisposing factor for obstructive sleep apnea-hypopnea syndrome. I recommend proceeding to polysomnography to confirm the diagnosis and to assess severity. The patient would like to first have a home sleep apnea test (HSAT). 2. Insomnia, due to irregular sleep-wake schedule. In addition, the patient takes naps during the day. I explained to the patient that improvement is impossible without some type of sleep-wake schedule. Plan: 1. Maintain a regular wake up time and spend no more than 8 hours in bed at night. Avoid naps. 2. Schedule a home sleep apnea test (HSAT). 3. Return for follow up after the test. Visit Type: In Office Time Spent with Patient (minutes): 15 Provider Statement: I spent 100% of the Face to Face Visit with the patient with greater than 50% spent counseling the patient and coordination of care.
== END 2020-10-21 10:16 | disposition home or self-care (01) ==
LOC: SC 10:15
PROVIDERS: ATTEND Internal Medicine Pulmonary Disease
DX: G47.10 Hypersomnia, unspecified (principal); R06.81 Apnea, not elsewhere classified; G47.8 Other sleep disorders; R41.89 Other symptoms and signs involving cognitive functions and awareness; R06.83 Snoring; Z87.891 Personal history of nicotine dependence
CPT/HCPCS: 99202; 99212

== ENCOUNTER 2020-10-25 01:14 | Outpatient (CLI) | payer OTHER | END 2020-10-25 01:15 | disposition other institution (70) | LOC: EMS 01:14 | DX: K92.0 Hematemesis (principal) | CPT/HCPCS: A0425; A0427 ==

== ENCOUNTER 2020-11-01 09:48 | Emergency (ER) | payer OTHER ==
--- OUTSIDE RECORDS SUMMARY | 2020-11-01 10:06 | EXTERNAL MEDICAL SUMMARY RPT | Continuity of Care Document ---
:1980 Demographics Phone Unavailable Preferred Language Unknown Marital Status Unknown Quaker Affiliation Unknown Race Unknown Ethnic Group Unknown Author Organization [facility] Address [address] [place] [address] Phone Problems date description facility [id number] [facility] [id number] Alcoholic cirrhosis of liver without [facility] ascites 20201025 Anemia, unspecified [facility] [id number] Other shock [facility] [id number] Secondary esophageal varices with [facility] bleeding Social History date description facility [phone]
[2020-11-01 10:30] LABS: BASOPHILS # (AUTO) 0.1 10^3/uL (0.0-0.1); BASOPHILS % (AUTO) 1.4 %; EOSINOPHILS # (AUTO) 0.2 10^3/uL (0.0-0.7); EOSINOPHILS % (AUTO) 4.7 %; HCT - HEMATOCRIT 26.8 % (42.0-52.0); HGB - HEMOGLOBIN 8.6 g/dL (14.0-18.0); LYMPHOCYTES # (AUTO) 1.4 10^3/uL (1.5-3.5); LYMPHOCYTES % (AUTO) 28.7 %; MEAN CORPUSCULAR HEMOGLOBIN 30.5 pg (27.0-31.0); MEAN CORPUSCULAR HGB CONC 32.1 g/dL (32.0-36.0); MEAN PLATELET VOLUME 9.6 fL (7.4-11.4); MONOCYTES # (AUTO) 0.9 10^3/uL (0.0-1.0); MONOCYTES % (AUTO) 19.3 %; NEUTROPHILS # (AUTO) 2.2 10^3/uL (1.5-6.6); NEUTROPHILS % (AUTO) 45.7 %; PLT - PLATELET COUNT 92 10^3/uL (130-450); RED BLOOD COUNT 2.82 10^6/uL (4.70-6.10); RED CELL DISTRIBUTION WIDTH 17.1 % (12.0-15.0); WHITE BLOOD COUNT 4.9 x10^3/uL (4.8-10.8)
[2020-11-01 10:36] LABS: BILIRUBIN,URINE NEGATIVE (NEGATIVE); GLUCOSE, URINE (UA) NEGATIVE (NEGATIVE); KETONES,URINE (UA) NEGATIVE (NEGATIVE); LEUKOCYTE ESTERASE, URINE NEGATIVE (NEGATIVE); NITRITE,URINE NEGATIVE (NEGATIVE); OCCULT BLOOD,URINE NEGATIVE (NEGATIVE); PROTEIN,URINE NEGATIVE (NEGATIVE); UROBILINOGEN,URINE 0.2 (NORMAL) E.U./dL (NORMAL)
[2020-11-01 10:37] LABS: CLARITY,URINE CLEAR (CLEAR)
[2020-11-01 10:44] LABS: ALBUMIN 2.5 g/dL (3.2-5.5); ALBUMIN/GLOBULIN RATIO 0.8 (1.0-2.2); BILIRUBIN,TOTAL 2.5 mg/dL (0.2-1.0); CALCIUM 8.3 mg/dL (8.5-10.3); POTASSIUM 4.2 mmol/L (3.5-5.0); TOTAL PROTEIN 5.7 g/dL (6.7-8.2)
--- NOTE | 2020-11-01 11:32 | ED Physician Documentation ---
History of Present Illness - Stated complaint Stated Complaint: MALE - Chief complaint Chief Complaint: General - History obtained from History obtained from: Patient - Additonal information Additional information: 40-year-old man with history of liver cirrhosis, recently hospitalized for GI bleed with 2 units of PRBC transfused in the hospital, discharged 4 days ago, presents with bilateral lower extremity edema and testicular swelling that he noticed yesterday. It has progressively worsened however is not associated with pain and is not tense. Denies fever chills, nausea vomiting or abdominal pain. Patient states that he increased his water pills to spironolactone 200 mg daily and Lasix 20 mg daily. Review of Systems Ten Systems: 10 systems reviewed and negative PD PAST MEDICAL HISTORY - Past Medical History GI: Esophageal varices, Cirrhosis - Past Surgical History Past Surgical History: No - Present Medications Home Medications: Ambulatory Orders Medication Instructions Recorded Confirmed Citalopram [CeleXA] 20 mg PO DAILY 07/08/20 07/08/20 Oxycodone HCl [Roxicodone] 5 mg PO Q8H PRN #7 tablet 09/27/20 Spironolactone [Aldactone] 50 mg PO QDAC #15 tablet 11/01/20 - Allergies Allergies/Adverse Reactions: Allergies Allergy/AdvReac Type Severity Reaction Status Date / Time No Known Drug Allergies Allergy Verified 11/01/20 10:00 - Social History Does the pt smoke?: No Smoking Status: Former smoker Does the pt drink ETOH?: No Does the pt have substance abuse?: Yes - Immunizations Immunizations are current?: Yes - POLST Patient has POLST: No PD ED PE NORMAL - Vitals Vital signs reviewed: Yes - General General: Alert and oriented X 3, No acute distress, Well developed/nourished - HEENT HEENT: Atraumatic, PERRL, EOMI - Neck Neck: Supple, no meningeal sign - Cardiac Cardiac: RRR - Respiratory Respiratory: No respiratory distress, Clear bilaterally - Abdomen Abdomen: Non tender, Non distended - Male Male : Restaurant District Manager present (Delfino), Other (Normal external male genitalia with the exception of moderate bilateral testicular edema. Bilateral cremaster in tact. Nontender on exam.) - Derm Derm: Normal color, Warm and dry - Extremities Extremities: Other (Bilateral lower extremity 2+ edema) - Neuro Neuro: Alert and oriented X 3 Results - Vitals Vitals: Vital Signs - 24 hr 11/01/20 09:52 Temperature 37.0 C Heart Rate 78 Respiratory 16 Rate Blood Pressure 100/74 O2 Saturation 100 Oxygen O2 Source Room air - Labs Labs: Laboratory Tests 11/01/20 11/01/20 11/01/20 10:26 10:26 10:30 WBC 4.9 RBC 2.82 L Hgb 8.6 L Hct 26.8 L MCV 95.0 H MCH 30.5 MCHC 32.1 RDW 17.1 H Plt Count 92 L MPV 9.6 Neut # (Auto) 2.2 Lymph # (Auto) 1.4 L [place] # (Auto) 0.9 Eos # (Auto) 0.2 Baso # (Auto) 0.1 Absolute Nucleated RBC 0.00 Nucleated RBC % 0.0 Sodium 133 L Potassium 4.2 Chloride 100 L Carbon Dioxide 25 Anion Gap 8.0 BUN 15 Creatinine 1.0 Estimated GFR (MDRD) 84 L Glucose 102 H Calcium 8.3 L Total Bilirubin 2.5 H AST 191 H ALT 72 H Alkaline Phosphatase 73 Total Protein 5.7 L Albumin 2.5 L Globulin 3.2 Albumin/Globulin Ratio 0.8 L Lipase 53 H Urine Color YELLOW Urine Clarity CLEAR Urine pH 7.0 Ur Specific [place] 1.010 Urine Protein NEGATIVE Urine Glucose (UA) NEGATIVE Urine Ketones NEGATIVE Urine Occult Blood NEGATIVE Urine Nitrite NEGATIVE Urine Bilirubin NEGATIVE Urine Urobilinogen 0.2 (NORMAL) Ur Leukocyte Esterase NEGATIVE Ur Microscopic Review NOT INDICATED Urine Culture Comments NOT INDICATED PD MEDICAL DECISION MAKING - ED course ED course: 40-year-old man with liver cirrhosis presents with cirrhosis, related swelling to the bilateral lower extremity and testicles. No evidence of infection. I have adjusted his spironolactone to increase the dose and discussed symptomatic care with the patient. 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 He also will follow up with SANDRO Mcneill. Departure - Departure Disposition: 01 Home, Self Care Clinical Impression: Testicle swelling, Leg swelling, Cirrhosis Condition: Good Instructions: Cirrhosis Liver Dc Follow-Up: MARLENA MCNEILL PA-C [Primary Care Provider] - Prescriptions: Spironolactone [Aldactone] 50 mg PO QDAC #15 tablet Comments: You were seen in the emergency department for swelling in your testicles and legs related to your cirrhosis. Please continue your current medications. I am adding on an additional 50mg spironolactone to take one a day. Please call your liver doctor today to make an appointment for follow-up.Please also make an appointment with SANDRO Mcneill. Return to the emergency department if you develop any new or worsening symptoms or other concerns. Wear compression stockings and try to elevate the swollen areas to relieve swelling.
[2020-11-01 11:35] VITALS: BP 97/65
== END 2020-11-01 11:37 | disposition home or self-care (01) ==
LOC: ED 09:48
DX: K74.60 Unspecified cirrhosis of liver (principal); Z87.891 Personal history of nicotine dependence
CPT/HCPCS: 36415; 80053; 81001; 81003; 83690; 85025; 87086; 99283; 99284

== ENCOUNTER 2020-11-02 22:08 | Emergency (ER) | payer OTHER ==
--- OUTSIDE RECORDS SUMMARY | 2020-11-02 22:12 | EXTERNAL MEDICAL SUMMARY RPT | Continuity of Care Document ---
:1980 Demographics Phone Unavailable Preferred Language Unknown Marital Status Unknown Mandaeism Affiliation Unknown Race Unknown Ethnic Group Unknown Author Organization [place] Address [address] [place] [address] Phone Problems date description facility [id number] [facility] 20201025 Alcoholic cirrhosis of liver without [facility] ascites 20201025 Anemia, unspecified [facility] [id number] Other shock [facility] [id number] Secondary esophageal varices with [facility] bleeding Social History date description facility [phone]
--- OUTSIDE RECORDS SUMMARY | 2020-11-02 22:13 | EXTERNAL MEDICAL SUMMARY RPT | Continuity of Care Document ---
:1980 Demographics Phone Unavailable Preferred Language Unknown Marital Status Unknown Jainism Affiliation Unknown Race Unknown Ethnic Group Unknown Author Organization [place] Address [address] [place] [address] Phone Problems date description facility [id number] [facility] 20201025 Alcoholic cirrhosis of liver without [facility] ascites 20201025 Anemia, unspecified [facility] [id number] Other shock [facility] [id number] Secondary esophageal varices with [facility] bleeding Social History date description facility [phone]
--- NOTE | 2020-11-02 23:52 | ED Physician Documentation ---
History of Present Illness - Stated complaint Stated Complaint: MALE - Chief complaint Chief Complaint: General - History obtained from History obtained from: Patient - Additonal information Additional information: Patient comes emergency department chief complaint of ongoing and slightly worsened scrotal edema. Patient has a history of alcoholic liver disease with chronic, significant lower extremity edema. He is on spironolactone, and states he is also on Lasix. The patient states that for approximately the last week, he has noticed increasing swelling in his scrotum. He denies any focal erythema or induration of the scrotal wall, and no fevers, chills, or body aches. No abdominal wall edema or grossly evident ascites that the patient has noticed. The patient denies 1 side or the other seeming worse. He states that it is not painful in particular, but just generally uncomfortable. He states that he was seen in the emergency department a couple of days ago and at that time, his spironolactone dose was increased. Patient states he has noticed a little extra urination since then and that he thought that his scrotum may be getting a little better. However, he states that over the last day, it seems a little worse again patient was concerned because his penis seems to be "buried" in the scrotum. He has been able to urinate, though he states he just cannot name as well. 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 He has not yet rescheduled this, but plans to do so on Wednesday, which is the day after tomorrow. The patient denies any fevers or chills. No abdominal pain. He states he is no longer drinking alcohol and is hoping to get on the liver transplant list. No other complaints at this time. Review of Systems Ten Systems: 10 systems reviewed and negative Constitutional: reports: Reviewed and negative Eyes: reports: Reviewed and negative Ears: reports: Reviewed and negative Nose: reports: Reviewed and negative Throat: reports: Reviewed and negative Cardiac: reports: Reviewed and negative Respiratory: reports: Reviewed and negative GI: reports: Reviewed and negative : reports: Other (Scrotal swelling) Skin: reports: Reviewed and negative Musculoskeletal: reports: Reviewed and negative Neurologic: reports: Reviewed and negative Psychiatric: reports: Reviewed and negative Endocrine: reports: Reviewed and negative Immunocompromised: reports: Reviewed and negative PD PAST MEDICAL HISTORY - Past Medical History Past Medical History: Yes GI: Esophageal varices, Cirrhosis - Past Surgical History Past Surgical History: No - Present Medications Home Medications: Ambulatory Orders Medication Instructions Recorded Confirmed Citalopram [CeleXA] 20 mg PO DAILY 07/08/20 07/08/20 Oxycodone HCl [Roxicodone] 5 mg PO Q8H PRN #7 tablet 09/27/20 Spironolactone [Aldactone] 50 mg PO QDAC #15 tablet 11/01/20 Furosemide [Lasix] 40 mg PO DAILY #20 tablet 11/02/20 - Allergies Allergies/Adverse Reactions: Allergies Allergy/AdvReac Type Severity Reaction Status Date / Time No Known Drug Allergies Allergy Verified 11/02/20 22:22 - Social History Does the pt smoke?: No Smoking Status: Never smoker Does the pt drink ETOH?: No Does the pt have substance abuse?: Yes - Immunizations Immunizations are current?: Yes - POLST Patient has POLST: No PD ED PE NORMAL - Vitals Vital signs reviewed: Yes - General General: Alert and oriented X 3, No acute distress - HEENT HEENT: Atraumatic, PERRL, EOMI, Moist mucous membranes - Neck Neck: Supple, no meningeal sign - Respiratory Respiratory: No respiratory distress - Abdomen Abdomen: Soft, Non tender, Non distended, Other (No abdominal wall edema. No palpable ascites.) - Male Male : Other (Markedly edematous and symmetrically enlarged scrotum. Skin is translucent, mildly uniformly pink, and nonindurated. Generalized, marked fluctuance of the scrotum is noted. No lesions. Patient is circumcised and scrotal tissue is easily retracted to penile base. No lesions/discoloration.) - Derm Derm: Normal color, Warm and dry, No rash - Extremities Extremities: No deformity, No calf tenderness / cord, Other (Marked lower extremity edema, symmetrical bilaterally.) - Neuro Neuro: Alert and oriented X 3 - Psych Psych: Normal mood, Normal affect Results - Vitals Vitals: Vital Signs - 24 hr 11/02/20 11/02/20 11/02/20 22:18 22:19 23:57 Temperature 36.7 C 36.7 C 36.7 C Heart Rate 85 85 86 Respiratory 18 18 16 Rate Blood Pressure 107/62 107/62 108/64 O2 Saturation 99 99 100 Oxygen O2 Source Room air PD MEDICAL DECISION MAKING - ED course Complexity details: reviewed old records, considered differential, d/w patient ED course: I discussed with the patient that there is no evidence of infection or testicular pathology at this time. The patient has significant lower extremity edema, and most likely, this is just an extension of that. However, since the scrotal sac is a terminal, Dependent body part, and there is no easy way to elevate it, it is difficult to accomplish drainage of the edema that has accumulated. We have discussed that the patient has been on his feet more over the last couple of days which may be contributing., And as such, should spend the next couple of days spending more time supine with his legs elevated, if possible. I have advised him that he may put a towel roll or pillow under his hips and place his feet on the arm of the couch. If he is able to then hold or prop his scrotum up out of the dependent position so as to encourage drainage of some of the fluid back into his pelvic venous system, this may help speed the process of edema elimination. Additionally, the patient is encouraged to try to prop his scrotum up out of the dependent position at night when he is in bed. This will require him to lay on his back, but most likely will also be helpful. He should continue on the increased dose of spironolactone, and in addition, I will increase his Lasix to 40 mg daily. The patient has been advised that if he begins to notice significant improvement in his scrotal and lower extremity edema, he may return to his prior dose of Lasix. Additionally, he should call first thing on Wednesday, which is the day after tomorrow, to set up a new appointment with his liver specialist, since he missed his recent appointment. I am giving him contact information for urology, though I have explained to the patient that most likely, the liver specialist will be most helpful since this is not a primary urologic problem in all likelihood. We have discussed the usual indications for return, including signs of infection or inability to retract tissue around the penis. Departure - Departure Disposition: 01 Home, Self Care Clinical Impression: Edema of scrotum Condition: Stable Follow-Up: Nura Thomas MD [Physician No Access] - Prescriptions: Furosemide [Lasix] 40 mg PO DAILY #20 tablet Comments: There is no evidence of infection of your scrotum, or circulatory compromise to your penis. The scrotal tissues are still able to retract around your penis. It is more difficult to drain the fluid from the scrotum than the legs, due to difficulty in elevating that particular body part. As we have discussed, we will increase your furosemide to 40 mg daily instead of 20, as well as have you continue the increase spironolactone dose from 2 days ago. Additionally, you should spend as much time as possible with your legs elevated. If you lay on the couch with your feet on the arm, you can also put a pillow or blanket roll underneath your hips and try to hold your scrotum in a position where it is not hanging down. This will position your scrotum such that it will drain more easily, since the main drainage is up and toward your back. The last time you spend with your scrotum hanging in a dependent position, the more able it will be to empty out. Please schedule a follow-up appointment with your liver specialist as soon as possible. Call first thing on Wednesday to schedule this appointment. You may also follow-up with urology if you wish, the most likely, the liver specialist will be most helpful in terms of follow-up for this issue. Discharge Date/Time: 11/02/20 23:57
[2020-11-02 23:58] VITALS: BP 108/64
== END 2020-11-02 23:57 | disposition home or self-care (01) ==
LOC: ED 22:08
DX: N50.89 Other specified disorders of the male genital organs (principal); K70.31 Alcoholic cirrhosis of liver with ascites
CPT/HCPCS: 99282; 99283

== ENCOUNTER 2020-11-05 09:02 | Outpatient (CLI) | payer OTHER | END 2020-11-05 09:03 | disposition home or self-care (01) | LOC: SC 09:02 | PROVIDERS: ATTEND Internal Medicine Pulmonary Disease | DX: G47.8 Other sleep disorders (principal); G47.00 Insomnia, unspecified; R06.81 Apnea, not elsewhere classified; R06.83 Snoring | CPT/HCPCS: 95806 ==

== ENCOUNTER 2020-11-11 14:55 | Outpatient (CLI) | payer OTHER ==
--- NOTE | 2020-11-11 15:29 | SLEEP CARE CONSULTATION ---
History of Present Illness Service Date and Time: 11/11/2020 6145 Initial [place] Sleepiness Scale score: 4 (in 2020) Additional HPI information: HPI: Mr. Bui returned for follow up of the home sleep apnea test (HSAT) he had on 11/06/2020. The test showed a lot of movement artifacts and partial loss of pulse oximetry data. There was no sleep-disordered breathing or hypoxemia. The patient was informed of these findings. The patient confirms that he was awake most of the night. His sleep-wake pattern continues to be irregular. Sleep Study - Results Prior sleep studies: No Allergies and Home Medications Drug allergies reviewed: Yes Home medication list reviewed: Yes Review of Systems Review of systems same as previous: Yes Physical Exam Height: 6 ft 2 in Weight: 185 lb Body Mass Index: 23.7 BMI Classification: Healthy weight Impression and Plan IMPRESSION: 1. Insomnia, due to irregular sleep-wake pattern and restless leg syndrome. Because the home sleep apnea test is inconclusive, he requests an in- laboratory polysomnography which is presently not offered here. He would like to go to [facility] where he gets most of his medical care. PLAN: 1. The patient will be referred to [facility] in [place] for further evaluation. 2. Return to our sleep center on as needed basis. Follow up with Sleep Care in: as needed Video Type: VSee Time Spent with Patient (minutes): 15
== END 2020-11-11 14:56 | disposition home or self-care (01) ==
LOC: SC 14:55
PROVIDERS: ATTEND Internal Medicine Pulmonary Disease
DX: G47.00 Insomnia, unspecified (principal)

== ENCOUNTER 2020-11-14 05:27 | Outpatient (CLI) | payer OTHER | END 2020-11-14 05:28 | disposition short-term general hospital (02) | LOC: EMS 05:27 | DX: R53.1 Weakness (principal); R44.8 Other symptoms and signs involving general sensations and perceptions | CPT/HCPCS: A0425; A0427 ==

== ENCOUNTER 2020-11-26 17:17 | Emergency (ER) | payer OTHER ==
--- OUTSIDE RECORDS SUMMARY | 2020-11-26 17:21 | EXTERNAL MEDICAL SUMMARY RPT | Continuity of Care Document ---
:1980 Demographics Phone Unavailable Preferred Language Unknown Marital Status Unknown [employer] Affiliation Unknown Race Unknown Ethnic Group Unknown Author Organization [facility] Address [address] [place] [address] Phone Problems date description facility [id number] Secondary esophageal varices with [facility] bleeding [id number] Other shock [facility] [id number] Anemia, unspecified [facility] [id number] Alcoholic cirrhosis of liver without [facility] ascites [id number] GIB [facility]
--- OUTSIDE RECORDS SUMMARY | 2020-11-26 17:23 | EXTERNAL MEDICAL SUMMARY RPT | Continuity of Care Document ---
:1980 Demographics Phone Unavailable Preferred Language Unknown Marital Status Unknown Buddhism Affiliation Unknown Race Unknown Ethnic Group Unknown Author Organization [facility] Address [address] [place] [address] Phone Problems date description facility [id number] Secondary esophageal varices with [facility] bleeding [id number] Other shock [facility] [id number] Anemia, unspecified [facility] [id number] Alcoholic cirrhosis of liver without [facility] ascites [id number] GIB [facility]
--- NOTE | 2020-11-26 17:47 | ED Physician Documentation ---
History of Present Illness - Stated complaint Stated Complaint: MALE BLEEDING - Chief complaint Chief Complaint: Abd Pain - Additonal information Additional information: 40-year-old male who has a history of alcoholic cirrhosis presents the emergency department for evaluation of rectal bleeding, fatigue, forgetfulness. He reports that in the past he has required large blood transfusions for upper GI bleeding. He does have a history of varices and has previously been banded at [facility]. He reports that he has had some rectal bleeding off and on for a few months but acutely worse over the last week. No syncope. Denies any vomiting in the last week. No hemataemesis He reports compliance with his cirrhosis meds which includes spironolactone, Lasix omeprazole pantoprazole also takes olanzapine and citalopram. Denies any current ETOH use. No falls or trauma Review of Systems Constitutional: denies: Fever, Chills Eyes: reports: Reviewed and negative Ears: reports: Reviewed and negative Nose: reports: Reviewed and negative Throat: reports: Reviewed and negative Cardiac: reports: Reviewed and negative Respiratory: reports: Reviewed and negative GI: reports: Abdominal Pain, Bloody / black stool. denies: Nausea, Vomiting : denies: Dysuria, Frequency Skin: denies: Rash Musculoskeletal: reports: Reviewed and negative PD PAST MEDICAL HISTORY - Past Medical History GI: Esophageal varices, Cirrhosis - Past Surgical History Past Surgical History: No - Present Medications Home Medications: Ambulatory Orders Medication Instructions Recorded Confirmed Citalopram [CeleXA] 20 mg PO DAILY 07/08/20 07/08/20 Oxycodone HCl [Roxicodone] 5 mg PO Q8H PRN #7 tablet 09/27/20 Spironolactone [Aldactone] 50 mg PO QDAC #15 tablet 11/01/20 Furosemide [Lasix] 40 mg PO DAILY #20 tablet 11/02/20 Lactulose 15 ml PO TID #240 ml 11/26/20 - Allergies Allergies/Adverse Reactions: Allergies Allergy/AdvReac Type Severity Reaction Status Date / Time No Known Drug Allergies Allergy Verified 11/26/20 17:26 - Social History Does the pt smoke?: No Smoking Status: Never smoker Does the pt drink ETOH?: No Does the pt have substance abuse?: Yes - Immunizations Immunizations are current?: Yes - POLST Patient has POLST: No PD ED PE EXPANDED - General General: Alert - Cardiac Cardiac: Regular Rate, Radial strong equal, Pedal strong equal, Cap refill < 2 sec - Respiratory Respiratory: Clear to ausultation jean. No: Distress, Labored - Abdomen Abdomen: Normal Bowel sounds, Other (no ascites). No: Tender to palpation, Rebound, Guarding - Rectal Rectal: Other (mild amount of pink blood on DAPHNE. nromal tone. no obvious hemorrhoids) - Derm Derm: Normal color. No: Petecchiae, Purpura - Extremities Extremities: Normal. No: Deformity, Tenderness - Neuro Neuro: Alert and Oriented X 3, CNII-XII intact - GCS Eye Opening: Spontaneous Motor: Obeys Commands Verbal: Oriented Total: 15 Results - Vitals Vitals: Vital Signs - 24 hr 11/26/20 11/26/20 11/26/20 17:26 17:30 20:29 Temperature 36 C L 36.5 C Heart Rate 88 88 86 Respiratory 18 18 19 Rate Blood Pressure 138/71 H 138/71 H 102/60 O2 Saturation 98 98 100 Oxygen O2 Source Room air - Labs Labs: Laboratory Tests 11/26/20 11/26/20 11/26/20 18:20 18:20 18:20 WBC 6.9 RBC 3.39 L Hgb 10.0 L Hct 31.0 L MCV 91.4 MCH 29.5 MCHC 32.3 RDW 20.0 H Plt Count 103 L MPV 9.5 Neut # (Auto) 4.3 Lymph # (Auto) 1.3 L [place] # (Auto) 0.8 Eos # (Auto) 0.4 Baso # (Auto) 0.1 Absolute Nucleated RBC 0.00 Nucleated RBC % 0.0 PT 14.6 H INR 1.3 H Sodium 135 Potassium 4.1 Chloride 102 Carbon Dioxide 24 Anion Gap 9.0 BUN 16 Creatinine 1.2 Estimated GFR (MDRD) 68 L Glucose 101 H Calcium 8.7 Total Bilirubin 2.4 H AST 72 H ALT 51 Alkaline Phosphatase 148 H Ammonia Total Protein 6.6 L Albumin 2.8 L Globulin 3.8 Albumin/Globulin Ratio 0.7 L Lipase 84 H Urine Color Urine Clarity Urine pH Ur Specific [place] Urine Protein Urine Glucose (UA) Urine Ketones Urine Occult Blood Urine Nitrite Urine Bilirubin Urine Urobilinogen Ur Leukocyte Esterase Ur Microscopic Review Urine Culture Comments Ethyl Alcohol < 5.0 Blood Type Antibody Screen 11/26/20 11/26/20 11/26/20 18:20 18:20 18:30 WBC RBC Hgb Hct MCV MCH MCHC RDW Plt Count MPV Neut # (Auto) Lymph # (Auto) [place] # (Auto) Eos # (Auto) Baso # (Auto) Absolute Nucleated RBC Nucleated RBC % PT INR Sodium Potassium Chloride Carbon Dioxide Anion Gap BUN Creatinine Estimated GFR (MDRD) Glucose Calcium Total Bilirubin AST ALT Alkaline Phosphatase Ammonia 212.5 H* Total Protein Albumin Globulin Albumin/Globulin Ratio Lipase Urine Color DARK YELLOW Urine Clarity CLEAR Urine pH 7.5 Ur Specific [place] 1.020 Urine Protein NEGATIVE Urine Glucose (UA) NEGATIVE Urine Ketones NEGATIVE Urine Occult Blood NEGATIVE Urine Nitrite NEGATIVE Urine Bilirubin NEGATIVE Urine Urobilinogen 1 (NORMAL) Ur Leukocyte Esterase NEGATIVE Ur Microscopic Review NOT INDICATED Urine Culture Comments NOT INDICATED Ethyl Alcohol Blood Type A POSITIVE Antibody Screen NEGATIVE PD MEDICAL DECISION MAKING - ED course Complexity details: reviewed results, re-evaluated patient, d/w patient, d/w family ED course: 40-year-old male has a history of cirrhosis secondary to alcohol use and see department with increasing episodes of forgetfulness feeling foggy as well as reported rectal bleeding. He is attended by gastroenterology through [facility] and is scheduled to have an appointment with them in follow-up in the upcoming weeks. Screening labs today reveal a mild anemia of hemoglobin 10.0. This is certainly more robust than he has been with previous ER visits. We do note an elevated bilirubin of 2.4 and INR of 1.3. Most significant in his findings is an elevated ammonia of 212. This is likely the cause of his foggy nests and forgetfulness. He however did present as GCS of 15 with no focal neuro deficits. I did do a very brief digital rectal exam and there was a small amount of pink- tinged blood on a gloved finger. No abdominal tenderness was elicited. He does have a history of previous variceal bleeds. However, I do not suspect brisk upper GI bleed at this time given the relatively stable hemoglobin as well as normal BUN. He has a MELD score of 18 2015: I have spoken with Dr. Villatoro gastroenterology at [facility]. We discussed this gentlemen's case at length including the reported rectal bleeding as well as his hemoglobin ammonia level PT and INR. At this time she does not feel that he needs emergent transfer for endoscopy as he has no signs of upper GI bleed. 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 The plan and findings were discussed at length with the patient and his mom at the bedside. Emergent return precautions were discussed Departure - Departure Disposition: 01 Home, Self Care Clinical Impression: Increased ammonia level Cirrhosis Qualifiers: Hepatic cirrhosis type: alcoholic cirrhosis Ascites presence: without ascites Qualified Code(s): K70.30 - Alcoholic cirrhosis of liver without ascites Condition: Stable Record reviewed to determine appropriate education?: Yes Instructions: ED Cirrhosis Liver Follow-Up: MARLENA VENTURA PA-C [Primary Care Provider] - Prescriptions: Lactulose 15 ml PO TID #240 ml Comments: Gabriele you were seen in the emergency department today for concerns of rectal bleeding, feeling foggy dazed and confused. As we discussed your hemoglobin today is very stable and quite healthy for you at 10 mg/dL. The most significant finding on your screening labs was an elevated ammonia level of just over 200. The cutoff for normal is typically less than 50. Elevated ammonia levels can often cause feelings of forgetfulness and feeling confused. Unfortunately this is a long-term side effect and consequence of cirrhosis. The way that this is managed is by taking a medication called lactulose. This will bind the ammonia in your intestines and you will simply defecated out. However the lactulose does cause watery stools. This is expected. Please fill the prescription for the lactulose and begin taking 15 mL 2-3 times a day. Your goal should be to have 2-3 watery bowel movements. Please continue to take all of the other medications as previously prescribed. Do not miss the follow-up appointment with your stand up comedian in the next upcoming weeks. Reasons to the emergency department return visit would include vomiting blood, a large amount of rectal bleeding, any fainting episodes, feeling short of air or worsening confusion.
[2020-11-26 18:32] LABS: BASOPHILS # (AUTO) 0.1 10^3/uL (0.0-0.1); BASOPHILS % (AUTO) 1.2 %; EOSINOPHILS # (AUTO) 0.4 10^3/uL (0.0-0.7); EOSINOPHILS % (AUTO) 6.3 %; LYMPHOCYTES # (AUTO) 1.3 10^3/uL (1.5-3.5); LYMPHOCYTES % (AUTO) 18.9 %; MEAN CORPUSCULAR HEMOGLOBIN 29.5 pg (27.0-31.0); MEAN CORPUSCULAR HGB CONC 32.3 g/dL (32.0-36.0); MEAN CORPUSCULAR VOLUME 91.4 fL (80.0-94.0); MEAN PLATELET VOLUME 9.5 fL (7.4-11.4); MONOCYTES # (AUTO) 0.8 10^3/uL (0.0-1.0); MONOCYTES % (AUTO) 11.8 %; NEUTROPHILS # (AUTO) 4.3 10^3/uL (1.5-6.6); NEUTROPHILS % (AUTO) 61.7 %; PLT - PLATELET COUNT 103 10^3/uL (130-450); RED BLOOD COUNT 3.39 10^6/uL (4.70-6.10); WHITE BLOOD COUNT 6.9 x10^3/uL (4.8-10.8)
[2020-11-26 18:46] LABS: ALBUMIN 2.8 g/dL (3.2-5.5); ALBUMIN/GLOBULIN RATIO 0.7 (1.0-2.2); ALKALINE PHOSPHATASE 148 IU/L (42-121); ALT ALANINE AMINOTRANSFERASE 51 IU/L (10-60); AST ASPARTATE AMINOTRANSFERASE 72 IU/L (10-42); BILIRUBIN,TOTAL 2.4 mg/dL (0.2-1.0); BUN - BLOOD UREA NITROGEN 16 mg/dL (6-20); CALCIUM 8.7 mg/dL (8.5-10.3); CARBON DIOXIDE - CO2 24 mmol/L (21-32); CHLORIDE 102 mmol/L (101-111); CREATININE 1.2 mg/dL (0.6-1.2); ETOH - ETHANOL < 5.0 mg/dL; GFR - MDRD 68 (>89); GLUCOSE 101 mg/dL (70-100); LIPASE 84 U/L (22-51); POTASSIUM 4.1 mmol/L (3.5-5.0); SODIUM 135 mmol/L (135-145); TOTAL PROTEIN 6.6 g/dL (6.7-8.2)
[2020-11-26 18:56] LABS: INR 1.3 (0.8-1.2); PT - PROTHROMBIN TIME 14.6 secs (9.9-12.6)
[2020-11-26 18:58] LABS: BILIRUBIN,URINE NEGATIVE (NEGATIVE); GLUCOSE, URINE (UA) NEGATIVE (NEGATIVE); KETONES,URINE (UA) NEGATIVE (NEGATIVE); LEUKOCYTE ESTERASE, URINE NEGATIVE (NEGATIVE); NITRITE,URINE NEGATIVE (NEGATIVE); OCCULT BLOOD,URINE NEGATIVE (NEGATIVE); PH,URINE 7.5 PH (5.0-7.5); PROTEIN,URINE NEGATIVE (NEGATIVE); UROBILINOGEN,URINE 1 (NORMAL) E.U./dL (NORMAL)
[2020-11-26 19:01] LABS: CLARITY,URINE CLEAR (CLEAR)
[2020-11-26] MEDS ORDERED: LACTULOSE 10 GM /15 ML UDC PO STA (19:03)
[2020-11-26 20:29] VITALS: BP 102/60
== END 2020-11-26 20:40 | disposition home or self-care (01) ==
LOC: ED 17:17
DX: K70.30 Alcoholic cirrhosis of liver without ascites (principal); D64.9 Anemia, unspecified; R79.89 Other specified abnormal findings of blood chemistry
CPT/HCPCS: 36415; 80053; 80320; 81003; 82140; 83690; 85025; 85610; 86850; 86900; 86901; 99283; 99284; A9270; 81001; 87086

== ENCOUNTER 2020-11-29 01:55 | Outpatient (CLI) | payer OTHER | END 2020-11-29 01:56 | disposition critical access hospital (66) | LOC: EMS 01:55 | DX: R06.02 Shortness of breath (principal); R11.2 Nausea with vomiting, unspecified; R53.1 Weakness; R41.0 Disorientation, unspecified | CPT/HCPCS: A0425; A0427 ==

== ENCOUNTER 2020-11-29 02:31 | Emergency (ER) | payer OTHER ==
--- OUTSIDE RECORDS SUMMARY | 2020-11-29 02:45 | EXTERNAL MEDICAL SUMMARY RPT | Continuity of Care Document ---
:1980 Demographics Phone Unavailable Preferred Language Unknown Marital Status Unknown Congregation Affiliation Unknown Race Unknown Ethnic Group Unknown Author Organization [facility] Address [address] [place] [address] Phone Problems date description facility [id number] Secondary esophageal varices with [facility] bleeding [id number] Other shock [facility] [id number] Anemia, unspecified [facility] [id number] Alcoholic cirrhosis of liver without C [facility] ascites [id number] GIB [facility]
[2020-11-29 03:29] LABS: BASOPHILS # (AUTO) 0.1 10^3/uL (0.0-0.1); BASOPHILS % (AUTO) 0.9 %; EOSINOPHILS # (AUTO) 0.3 10^3/uL (0.0-0.7); EOSINOPHILS % (AUTO) 4.5 %; HCT - HEMATOCRIT 28.2 % (42.0-52.0); HGB - HEMOGLOBIN 8.9 g/dL (14.0-18.0); LYMPHOCYTES # (AUTO) 1.6 10^3/uL (1.5-3.5); MEAN CORPUSCULAR HEMOGLOBIN 28.7 pg (27.0-31.0); MEAN CORPUSCULAR HGB CONC 31.6 g/dL (32.0-36.0); MEAN PLATELET VOLUME 9.7 fL (7.4-11.4); MONOCYTES # (AUTO) 1.3 10^3/uL (0.0-1.0); MONOCYTES % (AUTO) 18.8 %; NEUTROPHILS # (AUTO) 3.5 10^3/uL (1.5-6.6); NEUTROPHILS % (AUTO) 51.4 %; PLT - PLATELET COUNT 77 10^3/uL (130-450); RED CELL DISTRIBUTION WIDTH 19.6 % (12.0-15.0); WHITE BLOOD COUNT 6.8 x10^3/uL (4.8-10.8)
[2020-11-29 03:42] LABS: ALBUMIN 2.7 g/dL (3.2-5.5); ALBUMIN/GLOBULIN RATIO 0.7 (1.0-2.2); CALCIUM 8.2 mg/dL (8.5-10.3); CREATININE 1.1 mg/dL (0.6-1.2); POTASSIUM 3.6 mmol/L (3.5-5.0); TOTAL PROTEIN 6.4 g/dL (6.7-8.2)
--- NOTE | 2020-11-29 03:42 | ED Physician Documentation ---
History of Present Illness - Stated complaint Stated Complaint: SOA, DIZZY - Chief complaint Chief Complaint: Resp - History obtained from History obtained from: Patient, EMS - History of Present Illness Timing: Today Improved by: nothing Worsened by: no exacerbating factors - Additonal information Additional information: TOMASA, patient called 911 due to feeling dizzy, short of breath, and confused. He was T+R few days ago from this ED, rx lactulose for ammonia level over 200, patient says he has been taking this as prescribed. Patients HPI is extensive and covers a lot of ground including his expressing frustration with his chronic problems related to cirrhosis such as GI bleeding and likely encephalopathy (although patient says he has dementia, per patient). He says he feels he goes from one doctor to the next without any definitive instruction nor interventions that lead to lasting improvement. Eventually, when I ask what his goal(s) of [facility] ED visit is/are, he says he is getting a sleep study but has no sleep medication, and he also wants something for chronic right low back/hip pain. He says he cannot take acetaminophen nor ibuprofen due to his cirrhosis. Review of Systems Constitutional: reports: Reviewed and negative Eyes: reports: Reviewed and negative Cardiac: reports: Reviewed and negative Respiratory: reports: Reviewed and negative GI: reports: Reviewed and negative Musculoskeletal: reports: Extremity pain (RLE (back pain radiates to proximal RLE)) Neurologic: denies: Focal weakness, Numbness, Headache, Head injury PD PAST MEDICAL HISTORY - Past Medical History Past Medical History: Yes GI: Esophageal varices, GI bleed, Cirrhosis - Past Surgical History Past Surgical History: Yes - Present Medications Home Medications: Ambulatory Orders Medication Instructions Recorded Confirmed Citalopram [CeleXA] 20 mg PO DAILY 07/08/20 11/29/20 Oxycodone HCl [Roxicodone] 5 mg PO Q8H PRN #7 tablet 09/27/20 Spironolactone [Aldactone] 50 mg PO QDAC #15 tablet 11/01/20 11/29/20 Furosemide [Lasix] 40 mg PO DAILY #20 tablet 11/02/20 11/29/20 Lactulose 15 ml PO TID #240 ml 11/26/20 11/29/20 OLANZapine [Zyprexa] 5 mg PO DAILY 11/29/20 11/29/20 Omeprazole 40 mg PO BID 11/29/20 11/29/20 Pantoprazole [Protonix] 40 mg PO DAILY 11/29/20 11/29/20 traMADol [Ultram] 50 mg PO Q6H PRN #6 tablet 11/29/20 - Allergies Allergies/Adverse Reactions: Allergies Allergy/AdvReac Type Severity Reaction Status Date / Time No Known Drug Allergies Allergy Verified 11/29/20 02:35 - Social History Does the pt smoke?: No Smoking Status: Never smoker Does the pt drink ETOH?: No Does the pt have substance abuse?: Yes - Immunizations Immunizations are current?: Yes - POLST Patient has POLST: No PD ED PE NORMAL - Vitals Vital signs reviewed: Yes - General General: Alert and oriented X 3, No acute distress, Well developed/nourished - HEENT HEENT: Atraumatic, PERRL, EOMI, Moist mucous membranes - Neck Neck: Supple, no meningeal sign - Cardiac Cardiac: RRR - Respiratory Respiratory: No respiratory distress, Clear bilaterally - Abdomen Abdomen: Soft, Non tender, Non distended - Derm Derm: Normal color, Warm and dry - Neuro Neuro: Alert and oriented X 3, livestock counter 2-12 intact, No motor deficit, No sensory deficit, Normal speech Eye Opening: Spontaneous Motor: Obeys Commands Verbal: Oriented GCS Score: 15 Results - Vitals Vitals: Vital Signs - 24 hr 11/29/20 11/29/20 11/29/20 02:36 02:40 04:17 Temperature 36.8 C 36.8 C 36.8 C Heart Rate 118 H 118 H 112 H Respiratory 15 18 19 Rate Blood Pressure 105/70 105/70 109/73 O2 Saturation 100 100 100 11/29/20 11/29/20 04:18 04:40 Temperature 98.2 C H 36.8 C Heart Rate 112 H 110 H Respiratory 19 19 Rate Blood Pressure 109/73 109/73 O2 Saturation 100 100 Oxygen O2 Source Room air - Labs Labs: Laboratory Tests 11/29/20 11/29/20 11/29/20 03:25 03:25 03:25 WBC 6.8 RBC 3.10 L Hgb 8.9 L Hct 28.2 L MCV 91.0 MCH 28.7 MCHC 31.6 L RDW 19.6 H Plt Count 77 L MPV 9.7 Neut # (Auto) 3.5 Lymph # (Auto) 1.6 Forrest # (Auto) 1.3 H Eos # (Auto) 0.3 Baso # (Auto) 0.1 Absolute Nucleated RBC 0.00 Nucleated RBC % 0.0 Sodium 132 L Potassium 3.6 Chloride 100 L Carbon Dioxide 23 Anion Gap 9.0 BUN 15 Creatinine 1.1 Estimated GFR (MDRD) 75 L Glucose 113 H Calcium 8.2 L Total Bilirubin 3.0 H AST 75 H ALT 50 Alkaline Phosphatase 109 Ammonia 46.6 H Total Protein 6.4 L Albumin 2.7 L Globulin 3.7 Albumin/Globulin Ratio 0.7 L Lipase 68 H PD MEDICAL DECISION MAKING - ED course Complexity details: reviewed old records, reviewed results, re-evaluated patient, considered differential, d/w patient ED course: patient with documented cirrhosis with ascites on previous recent CT but no indication tonight of acute process including infection (nontender abdominal exam, afebrile, normal WBC). his ammonia level has reduced significantly from over 200 a few days ago to under 50 tonight. I reviewed his test results with him, including mild anemia and instructed him to return if he develops blood in vomitus or stool (both of which he denies), and to follow up with his doctor, next available appointment for reevaluation and likely recheck of blood tests. as noted in HPI, he is focused on discussing medication for sleep and recurrent low back pain. During our conversation, he calls his spouse and asks that I speak with her. I offered patient tramadol, as he tells me he doesnt like the way oxycodone makes him feel, yet he asks his if he should take the tramadol or oxy. I explained to her that I was not offering oxycodone but only the tramadol. he is given tramadol and limited rx for same and instructed to follow up with his doctor next available appointment for ongoing care of these chronic issues. Departure - Departure Disposition: 01 Home, Self Care Clinical Impression: Cirrhosis Qualifiers: Hepatic cirrhosis type: unspecified hepatic cirrhosis Ascites presence: with ascites Qualified Code(s): K74.60 - Unspecified cirrhosis of liver Anemia Qualifiers: Anemia type: unspecified type Qualified Code(s): D64.9 - Anemia, unspecified Condition: Good Instructions: ED Cirrhosis Liver Follow-Up: MARLENA VENTURA PA-C [Primary Care Provider] - Prescriptions: traMADol [Ultram] 50 mg PO Q6H PRN #6 tablet PRN Reason: Pain Discharge Date/Time: 11/29/20 04:40
[2020-11-29] MEDS ORDERED: traMADol 50 MG TABLET PO STA (04:07)
[2020-11-29 04:17] VITALS: BP 109/73
== END 2020-11-29 04:40 | disposition home or self-care (01) ==
LOC: EDUNIT# → ED 02:31
DX: K74.60 Unspecified cirrhosis of liver (principal); D64.9 Anemia, unspecified; R79.89 Other specified abnormal findings of blood chemistry
CPT/HCPCS: 36415; 80053; 82140; 83690; 85025; 99283; A9270

== ENCOUNTER 2020-12-10 17:32 | Emergency (ER) | payer OTHER ==
--- OUTSIDE RECORDS SUMMARY | 2020-12-10 17:36 | EXTERNAL MEDICAL SUMMARY RPT | Continuity of Care Document ---
:1980 Demographics Phone Unavailable Preferred Language Unknown Marital Status Unknown Hinduism Affiliation Unknown Race Unknown Ethnic Group Unknown Author Organization [facility] [address] [place] [address] Phone Allergies Encounters Medications Problems date description facility [id number] Secondary esophageal varices with [facility] bleeding [id number] Other shock [facility] [id number] Anemia, unspecified [facility] [id number] Alcoholic cirrhosis of liver without [facility] ascites [id number] GIB [facility] Results
--- OUTSIDE RECORDS SUMMARY | 2020-12-10 17:42 | EXTERNAL MEDICAL SUMMARY RPT | Continuity of Care Document ---
:1980 Demographics Phone Unavailable Preferred Language Unknown Marital Status Unknown Nondenominational Affiliation Unknown Race Unknown Ethnic Group Unknown Author Organization [facility] [address] [place] [address] Phone Allergies Encounters Medications Problems date description facility [id number] Secondary esophageal varices with [facility] bleeding [id number] Other shock [facility] [id number] Anemia, unspecified [facility] [id number] Alcoholic cirrhosis of liver without [facility] ascites [id number] GIB [facility] Results
[2020-12-10] MEDS ORDERED: SODIUM CHLORIDE 0.9% 1,000 ML IV STA (18:06)
[2020-12-10 18:14] LABS: BASOPHILS % (AUTO) 0.3 %; EOSINOPHILS # (AUTO) 0.1 10^3/uL (0.0-0.7); EOSINOPHILS % (AUTO) 1.2 %; HCT - HEMATOCRIT 26.9 % (42.0-52.0); HGB - HEMOGLOBIN 9.2 g/dL (14.0-18.0); LYMPHOCYTES % (AUTO) 9.8 %; MEAN CORPUSCULAR HEMOGLOBIN 30.1 pg (27.0-31.0); MEAN CORPUSCULAR HGB CONC 34.2 g/dL (32.0-36.0); MEAN CORPUSCULAR VOLUME 87.9 fL (80.0-94.0); MEAN PLATELET VOLUME 10.3 fL (7.4-11.4); MONOCYTES # (AUTO) 1.1 10^3/uL (0.0-1.0); MONOCYTES % (AUTO) 10.1 %; NEUTROPHILS # (AUTO) 8.3 10^3/uL (1.5-6.6); NEUTROPHILS % (AUTO) 77.7 %; PLT - PLATELET COUNT 67 10^3/uL (130-450); RED BLOOD COUNT 3.06 10^6/uL (4.70-6.10); RED CELL DISTRIBUTION WIDTH 19.7 % (12.0-15.0); WHITE BLOOD COUNT 10.6 x10^3/uL (4.8-10.8)
[2020-12-10] MEDS ORDERED: SODIUM CHLORIDE 0.9% 1,500 ML IV STA (18:26)
[2020-12-10] MEDS ORDERED: CEFEPIME 2 GM in SODIUM CHLORIDE 0.9% MINIBAG 100 ML IV STA (18:27)
[2020-12-10] MEDS ORDERED: AZITHROMYCIN INJ 500 MG in SODIUM CHLORIDE 0.9% 250 ML IV STA (18:29)
[2020-12-10] MEDS ORDERED: VANCOMYCIN INJ 2 GM in SODIUM CHLORIDE 0.9% 500 ML IV ONE (18:31)
[2020-12-10 18:35] LABS: ALBUMIN 4.4 g/dL (3.2-5.5); ALBUMIN/GLOBULIN RATIO 1.7 (1.0-2.2); BILIRUBIN,TOTAL 8.4 mg/dL (0.2-1.0); CALCIUM 8.9 mg/dL (8.5-10.3); CREATININE 3.5 mg/dL (0.6-1.2); POTASSIUM 4.9 mmol/L (3.5-5.0)
--- NOTE | 2020-12-10 18:35 | XRAY Report ---
PROCEDURE: Chest 1 View X-Ray INDICATIONS: chest pain TECHNIQUE: One view of the chest was acquired. COMPARISON: 09/27/2020. FINDINGS: Surgical changes and devices: None. Lungs and pleura: The left lateral costophrenic angle is incompletely included on the current study. There are new patchy bilateral airspace opacities with areas of confluence medially in the lung bases . No right pleural effusion or pneumothorax. Mediastinum: Mediastinal contours appear unchanged. Heart size is normal. Bones and chest wall: No suspicious bony lesions. Overlying soft tissues appear unremarkable. IMPRESSION: 1. New bilateral diffuse airspace opacities with areas of confluence medially in the lung bases. The findings are nonspecific and the differential includes pneumonia and pulmonary edema among other etio logies. Reviewed by: Sohail Chowdhury MD on 12/10/2020 6:34 PM PDT Approved by: Sohail Chowdhury MD on 12/10/2020 6:34 PM PDT Station ID: [id number]
[2020-12-10 18:38] LABS: VBG BASE EXCESS -5.5 mmol/L (-2 - +2); VBG OXYGEN SATURATION 51.2 % (60-80); VBG PCO2 33.4 mmHg (41-51); VBG PH 7.374 (7.31-7.41); VBG PO2 31.1 mmHg (25-47); VBG TOTAL CO2 20.1 mmol/L (24-29)
--- NOTE | 2020-12-10 18:42 | ED Physician Documentation ---
History of Present Illness - Stated complaint Stated Complaint: POST OP SOA/COUGHING BLOOD - Chief complaint Chief Complaint: Resp - History obtained from History obtained from: Patient - Additonal information Additional information: 40-year-old man with history of alcoholic cirrhosis (stopped drinking in May), status post EGD yesterday at [facility] without banding, discharged yesterday, presents with shortness of breath since that time with blood-tinged cough, dizziness and generalized weakness. Per his , he has had a history of blood clots in the abdomen.Further history limited by patient acuity Review of Systems Unable to obtain: Other (review of systems limited by patient acuity) PD PAST MEDICAL HISTORY - Past Medical History Past Medical History: Yes GI: Esophageal varices, GI bleed, Cirrhosis - Past Surgical History Past Surgical History: Yes - Present Medications Home Medications: Ambulatory Orders Medication Instructions Recorded Confirmed Citalopram [CeleXA] 20 mg PO DAILY 07/08/20 11/29/20 Oxycodone HCl [Roxicodone] 5 mg PO Q8H PRN #7 tablet 09/27/20 Spironolactone [Aldactone] 50 mg PO QDAC #15 tablet 11/01/20 11/29/20 Furosemide [Lasix] 40 mg PO DAILY #20 tablet 11/02/20 11/29/20 Lactulose 15 ml PO TID #240 ml 11/26/20 11/29/20 OLANZapine [Zyprexa] 5 mg PO DAILY 11/29/20 11/29/20 Omeprazole 40 mg PO BID 11/29/20 11/29/20 Pantoprazole [Protonix] 40 mg PO DAILY 11/29/20 11/29/20 traMADol [Ultram] 50 mg PO Q6H PRN #6 tablet 11/29/20 - Allergies Allergies/Adverse Reactions: Allergies Allergy/AdvReac Type Severity Reaction Status Date / Time No Known Drug Allergies Allergy Verified 12/10/20 17:41 - Social History Does the pt smoke?: No Smoking Status: Never smoker Does the pt drink ETOH?: No Does the pt have substance abuse?: Yes - Immunizations Immunizations are current?: Yes - POLST Patient has POLST: No PD ED PE NORMAL - Vitals Vital signs reviewed: Yes - General General: Alert and oriented X 3, Other (Jaundiced appearing) - HEENT HEENT: Atraumatic, PERRL, EOMI - Neck Neck: Supple, no meningeal sign - Cardiac Cardiac: Other (tachycardic rate, regular rhythm) - Respiratory Respiratory: Other (Bilateral diffuse rales) - Abdomen Abdomen: Non tender, Non distended - Derm Derm: Other (Pale and diaphoretic) - Extremities Extremities: No deformity - Neuro Neuro: Alert and oriented X 3 - Psych Psych: Normal mood, Normal affect Results - Vitals Vitals: Vital Signs - 24 hr 12/10/20 12/10/20 12/10/20 17:41 18:02 18:30 Temperature 37.5 C 37.0 C Heart Rate 116 H 108 H 106 H Respiratory 36 H 28 H 28 H Rate Blood Pressure 84/39 L 90/52 L 90/65 O2 Saturation 72 L 92 92 12/10/20 12/10/20 12/10/20 19:00 19:30 20:29 Temperature Heart Rate 106 H 109 H 107 H Respiratory 35 H 23 32 H Rate Blood Pressure 60/50 L 82/40 L O2 Saturation 87 L 82 L 85 L Oxygen O2 Source Non-rebreather mask Oxygen Flow Rate 4 - EKG (time done) 1834 Rate: Rate (enter#) (106) Rhythm: Sinus tachycardia Intervals: Normal OK, QRS normal Ischemia: Other (minimal STD anterolaterally <1mm) - Labs Labs: Laboratory Tests 12/10/20 12/10/20 12/10/20 17:50 17:51 17:52 WBC 10.6 RBC 3.06 L Hgb 9.2 L Hct 26.9 L MCV 87.9 MCH 30.1 MCHC 34.2 RDW 19.7 H Plt Count 67 L MPV 10.3 Neut # (Auto) 8.3 H Lymph # (Auto) 1.0 L [place] # (Auto) 1.1 H Eos # (Auto) 0.1 Baso # (Auto) 0.0 Absolute Nucleated RBC 0.00 Nucleated RBC % 0.0 PT INR VBG pH VBG pCO2 VBG pO2 VBG HCO3 VBG Total CO2 VBG O2 Saturation VBG Base Excess Sodium Potassium Chloride Carbon Dioxide Anion Gap BUN Creatinine Estimated GFR (MDRD) Glucose Lactic Acid Calcium Total Bilirubin AST ALT Alkaline Phosphatase Ammonia Troponin I High Sens B-Natriuretic Peptide 2498 H Total Protein Albumin Globulin Albumin/Globulin Ratio Lipase Nasal Adenovirus (PCR) Nasal B. parapertussis DNA (PCR) Nasal Coronavir 229E PCR Nasal Coronavir HKU1 PCR Nasal Coronavir NL63 PCR Nasal Coronavir OC43 PCR Nasal Enterovir/Rhinovir PCR Nasal Influenza B PCR Nasal Influenza A PCR Nasal Parainfluen 1 PCR Nasal Parainfluen 2 PCR Nasal Parainfluen 3 PCR Nasal Parainfluen 4 PCR Nasal RSV (PCR) Nasal B.pertussis DNA PCR Nasal C.pneumoniae (PCR) Reginaldo Human Metapneumo PCR Nasal M.pneumoniae (PCR) Nasal SARS-CoV-2 (PCR) Blood Type A POSITIVE Antibody Screen NEGATIVE 12/10/20 12/10/20 12/10/20 17:52 17:52 17:52 WBC RBC Hgb Hct MCV MCH MCHC RDW Plt Count MPV Neut # (Auto) Lymph # (Auto) [place] # (Auto) Eos # (Auto) Baso # (Auto) Absolute Nucleated RBC Nucleated RBC % PT INR VBG pH VBG pCO2 VBG pO2 VBG HCO3 VBG Total CO2 VBG O2 Saturation VBG Base Excess Sodium 123 L Potassium 4.9 Chloride 94 L Carbon Dioxide 16 L Anion Gap 13.0 BUN 45 H Creatinine 3.5 H Estimated GFR (MDRD) 20 L Glucose 106 H Lactic Acid 4.0 H* Calcium 8.9 Total Bilirubin 8.4 H AST 88 H ALT 51 Alkaline Phosphatase 64 Ammonia Troponin I High Sens 2222.3 H* B-Natriuretic Peptide Total Protein 7.0 Albumin 4.4 Globulin 2.6 Albumin/Globulin Ratio 1.7 Lipase 40 Nasal Adenovirus (PCR) Nasal B. parapertussis DNA (PCR) Nasal Coronavir 229E PCR Nasal Coronavir HKU1 PCR Nasal Coronavir NL63 PCR Nasal Coronavir OC43 PCR Nasal Enterovir/Rhinovir PCR Nasal Influenza B PCR Nasal Influenza A PCR Nasal Parainfluen 1 PCR Nasal Parainfluen 2 PCR Nasal Parainfluen 3 PCR Nasal Parainfluen 4 PCR Nasal RSV (PCR) Nasal B.pertussis DNA PCR Nasal C.pneumoniae (PCR) Reginaldo Human Metapneumo PCR Nasal M.pneumoniae (PCR) Nasal SARS-CoV-2 (PCR) Blood Type Antibody Screen 12/10/20 12/10/20 12/10/20 18:27 18:35 18:37 WBC RBC Hgb Hct MCV MCH MCHC RDW Plt Count MPV Neut # (Auto) Lymph # (Auto) [place] # (Auto) Eos # (Auto) Baso # (Auto) Absolute Nucleated RBC Nucleated RBC % PT 27.2 H INR 2.6 H VBG pH 7.374 VBG pCO2 33.4 L VBG pO2 31.1 VBG HCO3 19.0 L VBG Total CO2 20.1 L VBG O2 Saturation 51.2 L VBG Base Excess -5.5 L Sodium Potassium Chloride Carbon Dioxide Anion Gap BUN Creatinine Estimated GFR (MDRD) Glucose Lactic Acid Calcium Total Bilirubin AST ALT Alkaline Phosphatase Ammonia Troponin I High Sens B-Natriuretic Peptide Total Protein Albumin Globulin Albumin/Globulin Ratio Lipase Nasal Adenovirus (PCR) NOT DETECTED Nasal B. parapertussis DNA (PCR) NOT DETECTED Nasal Coronavir 229E PCR NOT DETECTED Nasal Coronavir HKU1 PCR NOT DETECTED Nasal Coronavir NL63 PCR NOT DETECTED Nasal Coronavir OC43 PCR NOT DETECTED Nasal Enterovir/Rhinovir PCR NOT DETECTED Nasal Influenza B PCR NOT DETECTED Nasal Influenza A PCR NOT DETECTED Nasal Parainfluen 1 PCR NOT DETECTED Nasal Parainfluen 2 PCR NOT DETECTED Nasal Parainfluen 3 PCR NOT DETECTED Nasal Parainfluen 4 PCR NOT DETECTED Nasal RSV (PCR) NOT DETECTED Nasal B.pertussis DNA PCR NOT DETECTED Nasal C.pneumoniae (PCR) NOT DETECTED Reginaldo Human Metapneumo PCR NOT DETECTED Nasal M.pneumoniae (PCR) NOT DETECTED Nasal SARS-CoV-2 (PCR) NOT DETECTED Blood Type Antibody Screen 12/10/20 18:37 WBC RBC Hgb Hct MCV MCH MCHC RDW Plt Count MPV Neut # (Auto) Lymph # (Auto) [place] # (Auto) Eos # (Auto) Baso # (Auto) Absolute Nucleated RBC Nucleated RBC % PT INR VBG pH VBG pCO2 VBG pO2 VBG HCO3 VBG Total CO2 VBG O2 Saturation VBG Base Excess Sodium Potassium Chloride Carbon Dioxide Anion Gap BUN Creatinine Estimated GFR (MDRD) Glucose Lactic Acid Calcium Total Bilirubin AST ALT Alkaline Phosphatase Ammonia 37.5 H Troponin I High Sens B-Natriuretic Peptide Total Protein Albumin Globulin Albumin/Globulin Ratio Lipase Nasal Adenovirus (PCR) Nasal B. parapertussis DNA (PCR) Nasal Coronavir 229E PCR Nasal Coronavir HKU1 PCR Nasal Coronavir NL63 PCR Nasal Coronavir OC43 PCR Nasal Enterovir/Rhinovir PCR Nasal Influenza B PCR Nasal Influenza A PCR Nasal Parainfluen 1 PCR Nasal Parainfluen 2 PCR Nasal Parainfluen 3 PCR Nasal Parainfluen 4 PCR Nasal RSV (PCR) Nasal B.pertussis DNA PCR Nasal C.pneumoniae (PCR) Reginaldo Human Metapneumo PCR Nasal M.pneumoniae (PCR) Nasal SARS-CoV-2 (PCR) Blood Type Antibody Screen PD MEDICAL DECISION MAKING - ED course ED course: 6pm - d/w patient that he is very medically ill and will need icu admission, antibiotics. patient consenting to antibiotics but adamant that he would like to prioritize comfort care and did not want to come to hospital in the first place and wants to go home. 6:45pm- d/w patient that he has massive strain on his heart likely from a pulmonary embolism vs [place]. patient requesting to bedside. 7pm - patient requested to be DNR/DNI with comfort measures only. POLST signed by and myself. RN Gaurav witness. 8pm - patient still alive and insisting he wants to go home. calm and stating she feels safe driving him. Will provide prepack. Education given about end of life care and hospice resources. Departure - Departure Disposition: 01 Home, Self Care Clinical Impression: Congestive heart failure, Troponin level elevated, Shortness of breath Condition: Critical Instructions: Hospice Dyspnea Care Follow-Up: Makayla Dodson, HAND II CUTTER [Provider Admit Priv/Credential] - Comments: Please be very careful driving home and heat treat puller to the side of the road if you are experiencing any distress or feel you are unable to drive. We are going to honor your family's wishes for Orthodox to be comfortable at home. Makayla Dodson is a palliative care nurse practitioner on the [place] that can provide hospice resources tomorrow morning if you give her a call. Return to the emergency department immediately if you have other concerns. Discharge Date/Time: 12/10/20 20:29
[2020-12-10] MEDS ORDERED: IOVERSOL 320 100 ML VIAL IVP ONE (18:43)
[2020-12-10 18:47] LABS: INR 2.6 (0.8-1.2); PT - PROTHROMBIN TIME 27.2 secs (9.9-12.6)
[2020-12-10 19:29] LABS: B. PARAPERTUSSIS- RESP PCR PAN NOT DETECTED; B. PERTUSSIS- RESP PCR PANEL NOT DETECTED; C. PNEUMONIAE- RESP PCR PANEL NOT DETECTED; CORONAVIRUS 229E-RESP PCR NOT DETECTED; CORONAVIRUS HKU1-RESP PCR NOT DETECTED; CORONAVIRUS NL63-RESP PCR NOT DETECTED; CORONAVIRUS OC43-RESP PCR NOT DETECTED; HUMAN METAPNEUMOVIRUS NOT DETECTED; INFLUENZA A- RESP PCR PANEL NOT DETECTED; INFLUENZA B - RESP PCR PANEL NOT DETECTED; M. PNEUMONIAE- RESP PCR PANEL NOT DETECTED; PARAINFLUENZA VIRUS 1 NOT DETECTED; PARAINFLUENZA VIRUS 2 NOT DETECTED; PARAINFLUENZA VIRUS 3 NOT DETECTED; PARAINFLUENZA VIRUS 4 NOT DETECTED; RHINOVIRUS/ENTEROVIRUS NOT DETECTED; RSV- RESP PCR PANEL NOT DETECTED; SARS-CoV-2 -RESP PCR PANEL NOT DETECTED
[2020-12-10] MEDS ORDERED: MORPHINE 2 MG/ML CARPUJECT IVP PRN (19:37)
[2020-12-10 19:38] VITALS: BP 82/40
[2020-12-10] MEDS ORDERED: oxyCODONE/ACET 5/325 Prepack 4 PO STA (20:03)
== END 2020-12-10 20:29 | disposition home or self-care (01) ==
LOC: ED 17:32
DX: I50.9 Heart failure, unspecified (principal); R79.89 Other specified abnormal findings of blood chemistry; R00.0 Tachycardia, unspecified; R04.2 Hemoptysis; R42 Dizziness and giddiness; R53.1 Weakness; Z20.822 Contact with and (suspected) exposure to COVID-19; K70.30 Alcoholic cirrhosis of liver without ascites; Z66 Do not resuscitate
CPT/HCPCS: 0202U; 36415; 71045; 80053; 82140; 82803; 83605; 83690; 83880; 84484; 85025; 85610; 86850; 86900; 86901; 87040; 93005; 96365; 96368; 99284; 99285; J3370

== ENCOUNTER 2020-12-11 08:36 | Outpatient (CLI) | payer OTHER | END 2020-12-11 08:37 | disposition E | LOC: EMS 08:36 ==